=== PATIENT | female | born 1965 | race Caucasian/White ===

== ENCOUNTER → 2017-08-03 | Outpatient (CLI) | payer OTHER ==
--- NOTE | 2017-08-03 11:30 | XR ---
EXAMINATION TYPE: XR lumbosacral spine min 4V DATE OF EXAM: 08/03/2017 COMPARISON: NONE HISTORY: Low back pain, degenerative disc change, osteoarthritis TECHNIQUE: Five-view lumbar spine FINDINGS: There is a minimal grade 1 spondylolisthesis of L4 anterior and L5. Disc space narrowing is present L5-S1. Some posterior disc space narrowing is present L3-4 and L2-3. Vertebral body heights are preserved. There is diffuse facet degenerative changes throughout the lumbar spine, greater at th e L4-5 L5-S1 levels. There is attempted sacralization of L5. IMPRESSION: 1. Degenerative changes discussed above. No acute osseous abnormality is evident.
== END | disposition home or self-care (01) ==
LOC: RADXRMAIN 10:58
PROVIDERS: ATTEND Family Medicine
DX: M47.817 Spondylosis without myelopathy or radiculopathy, lumbosacral region (principal)
CPT/HCPCS: 72110

== ENCOUNTER 2018-10-27 21:19 | Emergency (ER) | payer OTHER ==
[2018-10-27 21:40] VITALS: RESP 18
[2018-10-27] MEDS ORDERED: DIPH,PERTUS(ACELL)TETVAC-LF 0.5 ML VIAL IM ONE (21:40)
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
[2018-10-27 23:10] LABS: Appearance,Urine Clear (Clear); Bacteria,Urine Rare /hpf; Bilirubin,Urine Negative (Negative); Blood,Urine Trace (Negative); Color,Urine Yellow; Glucose,Urine (UA) Negative (Negative); Ketones,Urine Negative (Negative); Leukocyte Esterase,Urine Small (Negative); Mucus,Urine Rare /hpf; Nitrite,Urine Positive (Negative); PH, Urine 5.5 (5.0-8.0); Protein,Urine Trace (Negative); RBC,Urine 2 /hpf (0-5); Specific Gravity,Urine 1.022 (1.001-1.035); Squamous Epithelial Cell,Urine 3 /hpf (0-4); WBC,Urine 5 /hpf (0-5)
[2018-10-28 01:42] LABS: Amphetamine Screen,Urine Not Detected (NotDetected); Barbiturate Screen,Urine Not Detected (NotDetected); Benzodiazepines Screen,Urine Detected (NotDetected); Cocaine Screen,Urine Not Detected (NotDetected); Methadone Screen, Urine Not Detected (NotDetected); Opiate Screen,Urine Not Detected (NotDetected); Oxycodone Screen, Urine Not Detected (NotDetected); Phencyclidine Screen,Urine Not Detected (NotDetected); Tricyclic Antidepressant,Urine Not Detected (NotDetected); Urn Cannabinoid Scrn Not Detected (NotDetected)
[2018-10-28] MEDS ORDERED: clonazePAM 0.5 MG TAB PO PRN (01:52)
[2018-10-28] MEDS ORDERED: DIAZEPAM 5 MG TAB PO PRN (01:52)
[2018-10-28] MEDS ORDERED: lamoTRIgine 100 MG TAB PO STA (02:04)
[2018-10-28 08:57] VITALS: BP 126/68; PULSE 88; TEMP 97.7
[2018-10-28] MEDS ORDERED: LORATADINE 10 MG TAB PO SCH (09:00)
[2018-10-28] MEDS ORDERED: DULoxetine HCL 60 MG CAPSULE.DR PO SCH (09:00)
[2018-10-28] MEDS ORDERED: NON-FORMULARY DRUG (Omeprazole 20 MG) PO SCH (09:00)
[2018-10-28] MEDS ORDERED: ARIPiprazole 5 MG TAB PO SCH (09:00)
[2018-10-28] MEDS ORDERED: lamoTRIgine 100 MG TAB PO SCH (09:00)
[2018-10-28] MEDS ORDERED: NON-FORMULARY DRUG (Ranitidine Hcl [Zantac] 150 MG) PO SCH (21:00)
== END 2018-10-28 09:17 ==
LOC: EC 21:19
DX: S61.512A Laceration without foreign body of left wrist, initial encounter (principal); F32.9 Major depressive disorder, single episode, unspecified; F41.9 Anxiety disorder, unspecified; F43.10 Post-traumatic stress disorder, unspecified; F17.200 Nicotine dependence, unspecified, uncomplicated; Z91.5 Personal history of self-harm; Z85.9 Personal history of malignant neoplasm, unspecified; Z79.899 Other long term (current) drug therapy; Z88.1 Allergy status to other antibiotic agents; Z88.5 Allergy status to narcotic agent; Z91.041 Radiographic dye allergy status; Z91.040 Latex allergy status; Z88.8 Allergy status to other drugs, medicaments and biological substances; Z88.2 Allergy status to sulfonamides; Z23 Encounter for immunization; W26.0XXA Contact with knife, initial encounter; Y93.89 Activity, other specified
CPT/HCPCS: 12002; 80306; 81001; 81025; 82075; 90471; 90715; 99284

== ENCOUNTER → 2018-12-22 | Outpatient (CLI) | payer OTHER ==
--- NOTE | 2018-12-23 11:25 | MM ---
Reason for exam: additional evaluation requested from prior study. Last mammogram was performed 1 year and 4 months ago. History: Patient has history of other cancer at age 26. Family history of breast cancer in sister at age 43 and breast cancer in paternal aunt at age 50. Benign cyst aspiration of the right breast. Physical Findings: Nurse did not find any significant physical abnormalities on exam. [facility] Diagnostic Mammo w CAD SHE[place] Bilateral CC and MLO view(s) were taken. Prior study comparison: August 30, 2017, mammogram. There are scattered fibroglandular densities. No significant new findings when compared with previous films. These results were verbally communicated with the patient and result sheet given to the patient on 12/22/18. ASSESSMENT: Negative, BI-RAD 1 RECOMMENDATION: Routine screening mammogram of both breasts in 1 year. Manage patient on a clinical basis. If any suspicious palpable abnormality develops, patient should be referred for ultrasound.
== END | disposition home or self-care (01) ==
LOC: RADMAMWWP 16:03
PROVIDERS: ATTEND Family Medicine
DX: Z09 Encounter for follow-up examination after completed treatment for conditions other than malignant neoplasm (principal); Z87.898 Personal history of other specified conditions; Z80.3 Family history of malignant neoplasm of breast
CPT/HCPCS: 77066

== ENCOUNTER → 2019-02-13 | Outpatient (CLI) | payer OTHER ==
--- NOTE | 2019-02-13 15:21 | XR ---
EXAMINATION TYPE: XR KUB DATE OF EXAM: 02/13/2019 COMPARISON: NONE HISTORY: Right renal stone TECHNIQUE: One view abdominal series FINDINGS: The osseous structures are intact. The bowel gas pattern is nonspecific. Calcifications in the pelvi s are nonspecific. Hypertrophic change of the acetabulum bilaterally. Sclerotic density right femoral neck likely related to bone island. Hypertrophic and degenerative change lower lumbar spine. No suspicious calcifications overlying the kidneys. There is bowel content which does obscure portion s of the renal outlines.. IMPRESSION: 1. Nonspecific abdomen. No definite suspicious calcifications as visualized.
== END | disposition home or self-care (01) ==
LOC: RAD 14:57
PROVIDERS: ATTEND Urology
DX: N20.0 Calculus of kidney (principal)
CPT/HCPCS: 74018

== ENCOUNTER → 2019-02-20 | Outpatient (CLI) | payer OTHER ==
[2019-02-20 14:14] VITALS: BP 139/70; PULSE 16; RESP 16; TEMP 98.4; BMI 38.1
--- NOTE | 2019-02-20 14:37 | P.HPBAR ---
Bariatric H&P - History & Physicial H&P Date: 02/20/19 History & Physicial: Visit/CC: Initial Visit Patient initial contact: Initial weight: 104.78 kg Initial weight in pounds: 231.00 Height: 5 ft 5.25 in Initial BMI: 38.1 Last weight: Current weight: 104.78 kg Current weight in pounds: 231.00 Current BMI: 38.1 [place] body weight (based on NIH guidelines): 57.266 kg Excess body weight loss: 0.0% The patient is a 53 year-old F who presents for Bariatric Assessment. Patient presents today for presurgical consultation. She is morbidly obese, her BMI is 38. She has had lifetime problems with obesity. She is interested in the sleeve gastrectomy. Past Medical History Past Medical History: Cancer Additional Past Medical History / Comment(s): kidney stones, personality disorder, arrhythmia History of Any Multi-Drug Resistant Organisms: None Reported Past Surgical History: Orthopedic Surgery Additional Past Surgical History / Comment(s): BNSP Smoking Status: Current every day smoker Surgical - Exam Vital Signs Temp Pulse Resp BP 98.4 F 16 L 16 139/70 02/20/19 14:10 02/20/19 14:10 02/20/19 14:10 02/20/19 14:10 - General well developed, well nourished, no distress - Eyes PERRL - ENT normal pinna - Neck no masses - Respiratory normal expansion - Cardiovascular Rhythm: regular - Abdomen Abdomen: soft, non tender Bariatric Assessment & Plan Plan: Morbid obesity with BMI 42. Patient was scheduled for EGD. Once her insurance authorization is complete she will undergo scheduled for sleeve gastrectomy. Bariatric Checklist Checklist: Plan: Checklist: EGD: 1. Hiatal hernia: 2. H. Pylori: HgbA1c: Vitamin D: Smoking: Current every day smoker Primary care physician referral: Dr. Dunlap Psychiatry clearance: Cardiology clearance: Sleep study: Diet journal: VTE risk score: VTE risk level: Rehab needs at discharge:
[2019-02-20 15:07] LABS: HCT 42.4 % (34.0-46.0); HGB 13.8 gm/dL (11.4-16.0); MCH 27.8 pg (25.0-35.0); MCHC 32.6 g/dL (31.0-37.0); MCV 85.1 fL (80.0-100.0); Mean Platelet Volume 7.2; Platelet Count 271 k/uL (150-450); RBC 4.97 m/uL (3.80-5.40); RDW 13.8 % (11.5-15.5); WBC 10.9 k/uL (3.8-10.6)
[2019-02-21 00:17] LABS: Albumin 4.1 g/dL (3.80-4.90); Albumin/Globulin Ratio 1.95 (1.60-3.17); Anion Gap 3.5 mmol/L (4.00-12.00); Calcium 9.1 mg/dL (8.7-10.3); Carbon Dioxide 30.5 mmol/L (21.6-31.8); Globulin 2.1 g/dL (1.6-3.3); LDL Cholesterol,Calculated 120.8 mg/dL (0.0-131.0); Potassium 4.3 mmol/L (3.5-5.5); Total Bilirubin 0.2 mg/dL (0.2-1.2); Total Protein 6.2 g/dL (6.2-8.2); VLDL Calculation 55.2 mg/dL (5.00-40.00)
[2019-02-21 00:18] LABS: Vitamin D 25 Hydroxy 46.4 ng/mL (30.0-100.0)
[2019-02-21 00:48] LABS: Hemoglobin A1C 6.1 % (4.0-6.0)
== END | disposition home or self-care (01) ==
LOC: BARWHC3 13:29
PROVIDERS: ATTEND Surgery
DX: E66.01 Morbid (severe) obesity due to excess calories (principal); E44.0 Moderate protein-calorie malnutrition; E55.9 Vitamin D deficiency, unspecified; F17.200 Nicotine dependence, unspecified, uncomplicated; Z68.38 Body mass index [BMI] 38.0-38.9, adult
CPT/HCPCS: 80061; 80053; 82607; 84443; 85027; 82306; 83036; 93005; 36415; G0463; 99201

== ENCOUNTER → 2019-02-24 | Outpatient (CLI) | payer OTHER ==
--- NOTE | 2019-02-24 11:44 | XR ---
EXAMINATION TYPE: XR skull limited DATE OF EXAM: 02/24/2019 COMPARISON: NONE HISTORY: Pre-MRI clearance. TECHNIQUE: Two-view skull. FINDINGS: No suspicious intracranial metallic foreign body or coil is seen to prevent MRI study. IMPRESSION: As above.
--- NOTE | 2019-02-25 20:03 | MR ---
EXAMINATION TYPE: MR knee LT wo con DATE OF EXAM: 02/24/2019 COMPARISON: None HISTORY: Left knee pain TECHNIQUE: Multiplanar, multisequence imaging of the left knee is performed without IV contrast. FINDINGS: MEDIAL MENISCUS: There is a parallel linear signal within the posterior horn medial meniscus compatib le some internal derangement. Communication with the articular surface is not clearly identified. LATERAL MENISCUS: Anterior and posterior horns are intact without tear. CRUCIATE LIGAMENTS: The anterior and posterior cruciate ligaments are intact and unremarkable. COLLATERAL LIGAMENTS: The medial collateral ligament and lateral collateral ligament complex are inta ct and unremarkable. EXTENSOR MECHANISM: Visualized quadriceps and patellar tendons are intact. EFFUSION: There is a moderate effusion. This may have extension posteriorly to the joint space into the popliteal cyst. POPLITEAL CYST: There is a small popliteal cyst present measuring 1.3 x 2.2 cm. TRICOMPARTMENT SPACES: There is narrowing of the medial compartment joint space. Lateral compartment joint space appears preserved. Patellofemoral joint space is preserved. Note is made of medial femor al condylar spurring. CARTILAGE: There is thinning of the articular cartilage within the medial compartment joint space. BONE MARROW SIGNAL: No focal abnormal marrow signal is appreciated. OTHER: No additional significant abnormality is appreciated. IMPRESSION: Internal derangement posterior horn medial meniscus. 2. Moderate joint effusion. 3. Popliteal cyst. 4. Osteoarthritic degenerative change of the medial compartment left knee thinning of the cartilage
== END | disposition home or self-care (01) ==
LOC: RADMRIMAIN 11:10
PROVIDERS: ATTEND Orthopaedic Surgery
DX: M19.90 Unspecified osteoarthritis, unspecified site (principal); M71.22 Synovial cyst of popliteal space [Baker], left knee
CPT/HCPCS: 70250

== ENCOUNTER 2019-03-03 10:06 | Day surgery (SDC) | payer OTHER ==
[~2019-03-03 10:06] MED LIST: LACTATED RINGERS 1,000 ML IV SCH
[2019-03-03 10:26] VITALS: RESP 16; TEMP 96.9
[2019-03-03] MEDS ORDERED: LIDOCAINE 1% 20 ML VIAL (10MG/ML) FOR IV START INTRADERMA ONE (10:36)
[2019-03-03] MEDS ORDERED: PROPOFOL 10 MG/ML 20 ML VIAL IV ONE (10:37)
[2019-03-03] MEDS ORDERED: MIDAZOLAM 2 MG/2 ML VIAL ONE (10:37)
--- NOTE | 2019-03-03 10:39 | P.GSHP ---
History of Present Illness H&P Date: 03/03/19 Chief Complaint: GERD, morbid obesity This is a 53-year-old female referred from Dr. Brown. Patient's echo with GERD. She is undergoing workup for sleeve gastrectomy. Her BMI is 39. Past Medical History Past Medical History: Asthma, Cancer Additional Past Medical History / Comment(s): kidney stones, arrhythmia, cervical/uterine cancer History of Any Multi-Drug Resistant Organisms: None Reported Past Surgical History: Appendectomy, Bladder Surgery, Ear Surgery, Hysterectomy, Orthopedic Surgery, Tonsillectomy, Tubal Ligation Additional Past Surgical History / Comment(s): bladder neck suspension, mastoid facial decompression, rt ear stapes surgery, rt ankle plate and screws, egd, colonoscopy Past Anesthesia/Blood Transfusion Reactions: Previous Problems w/ Anesthesia Additional Past Anesthesia/Blood Transfusion Reaction / Comment(s): pt states "came out of twilight anesthesia when doing procedure" Smoking Status: Current every day smoker - Past Family History Sister(s) Family Medical History: Cancer Additional Family Medical History / Comment(s): breast cancer Father Family Medical History: Cancer Additional Family Medical History / Comment(s): throat cancer Medications and Allergies Home Medications Medication Instructions Recorded Confirmed Type ARIPiprazole [Abilify] 5 mg PO DAILY 10/27/18 03/03/19 History Cetirizine HCl [Zyrtec] 10 mg PO DAILY 10/27/18 03/03/19 History DULoxetine HCL [Cymbalta] 60 mg PO BID 10/27/18 03/03/19 History Omeprazole [PriLOSEC] 20 mg PO DAILY 10/27/18 03/03/19 History Ranitidine HCl [Zantac] 150 mg PO HS 10/27/18 03/03/19 History clonazePAM [KlonoPIN] 1 mg PO TID PRN 10/27/18 03/03/19 History busPIRone HCl [Buspar] 5 mg PO BID 02/20/19 03/03/19 History Albuterol Inhaler [Ventolin Hfa 1 - 2 puff INHALATION RT-Q6H PRN 03/01/19 03/03/19 History Inhaler] Albuterol Nebulized [Ventolin 2.5 mg INHALATION DAILY PRN 03/01/19 03/03/19 History Nebulized] Folic Acid 2 tab PO DAILY 03/01/19 03/03/19 History Allergies Allergy/AdvReac Type Severity Reaction Status Date / Time azithromycin Allergy Unknown Verified 03/03/19 10:37 cephalexin [From Keflex] Allergy Unknown Verified 03/03/19 10:37 codeine Allergy SOB/GI Verified 03/03/19 10:37 DISTRESS divalproex sodium Allergy "felt like Verified 03/03/19 10:37 [From Depakote] I was going crazy" hydromorphone [From Dilaudid] Allergy BP Verified 03/03/19 10:37 DECREASES Iodinated Contrast- Oral and Allergy Unknown Verified 03/03/19 10:37 IV Dye iodine Allergy Unknown Verified 03/03/19 10:37 Latex, Natural Rubber Allergy Rash/Hives/ Verified 03/03/19 10:37 WHEEZING oxycodone [From OxyContin] Allergy Unknown Verified 03/03/19 10:37 Penicillins Allergy Unknown Verified 03/03/19 10:37 pseudoephedrine Allergy Dyspnea Verified 03/03/19 10:37 Sulfa (Sulfonamide Allergy Unknown Verified 03/03/19 10:37 Antibiotics) clonazepam AdvReac Confusion Verified 03/03/19 10:37 lurasidone AdvReac Nausea & Verified 03/03/19 10:37 Vomiting nitrofurantoin AdvReac Nausea & Verified 03/03/19 10:37 [From Macrobid] Vomiting tetracycline AdvReac Nausea & Verified 03/03/19 10:37 Vomiting valproic acid AdvReac Confusion Verified 03/03/19 10:37 Surgical - Exam Vital Signs Temp Pulse Resp BP Pulse Ox 96.9 F L 93 16 129/61 96 03/03/19 10:24 03/03/19 10:24 03/03/19 10:24 03/03/19 10:24 03/03/19 10:24 - General well developed, well nourished, no distress - Eyes PERRL - ENT normal pinna - Neck no masses - Respiratory normal expansion - Cardiovascular Rhythm: regular - Abdomen Abdomen: soft, non tender Assessment and Plan Assessment: GERD. Morbid obesity We'll perform EGD.
--- NOTE | 2019-03-03 10:48 | P.OP ---
Date of Procedure: 03/03/19 Preoperative Diagnosis: GERD Morbid obesity Postoperative Diagnosis: Gen. gastritis Hiatal hernia Esophagitis Procedure(s) Performed: EGD Anesthesia: MAC Surgeon: Ten Yusuf Pathology: other (Antrum, esophagus) Condition: stable Disposition: PACU Description of Procedure: The patient's placed on the endoscopy table in the lateral position. She received IV sedation. The gastroscope placed oropharynx and passed into the esophagus. The scope was a place and stomach and then through the pylorus. The first second portion of duodenum appeared normal. Scope was then brought back the antrum and this appeared mildly inflamed. A biopsies performed. The scope was then retroflexed and the remainder of the stomach appeared normal. There was a small hiatal hernia. The GE junction was at 39 cm. The distal esophagus appeared mildly inflamed a biopsies performed. The proximal esophagus appeared normal. Scope was withdrawn for patient.
[2019-03-03 11:17] VITALS: BP 100/67; PULSE 87
== END 2019-03-03 11:31 | disposition home or self-care (01) ==
LOC: ORWHC2ENDO 10:06
PROVIDERS: ATTEND Surgery
DX: K21.0 Gastro-esophageal reflux disease with esophagitis (principal); K29.50 Unspecified chronic gastritis without bleeding; K44.9 Diaphragmatic hernia without obstruction or gangrene; E66.01 Morbid (severe) obesity due to excess calories; Z68.39 Body mass index [BMI] 39.0-39.9, adult; J45.909 Unspecified asthma, uncomplicated; F41.9 Anxiety disorder, unspecified; F43.10 Post-traumatic stress disorder, unspecified; F31.9 Bipolar disorder, unspecified; F60.9 Personality disorder, unspecified; F17.210 Nicotine dependence, cigarettes, uncomplicated; Z98.51 Tubal ligation status; Z79.899 Other long term (current) drug therapy; Z91.040 Latex allergy status; Z88.5 Allergy status to narcotic agent; Z88.1 Allergy status to other antibiotic agents; Z91.041 Radiographic dye allergy status; Z88.0 Allergy status to penicillin; Z88.2 Allergy status to sulfonamides; Z88.8 Allergy status to other drugs, medicaments and biological substances; Z91.09 Other allergy status, other than to drugs and biological substances; Z87.442 Personal history of urinary calculi; Z85.41 Personal history of malignant neoplasm of cervix uteri; Z85.42 Personal history of malignant neoplasm of other parts of uterus; Z90.710 Acquired absence of both cervix and uterus; Z80.3 Family history of malignant neoplasm of breast; Z80.0 Family history of malignant neoplasm of digestive organs
CPT/HCPCS: 43239; J2250; J2704; 88305

== ENCOUNTER → 2019-03-06 | Outpatient (CLI) | payer OTHER ==
--- NOTE | 2019-03-06 18:12 | XR ---
EXAMINATION TYPE: XR chest 2V DATE OF EXAM: 03/06/2019 COMPARISON: NONE HISTORY: Preop knee surgery TECHNIQUE: Frontal and lateral views of the chest are obtained. FINDINGS: There is no focal air space opacity, pleural effusion, or pneumothorax seen. The cardiac silhouette size is within normal limits. The osseous structures are intact. IMPRESSION: No acute cardiopulmonary process.
== END | disposition home or self-care (01) ==
LOC: RADXRMAIN 13:09
PROVIDERS: ATTEND Orthopaedic Surgery
DX: Z01.818 Encounter for other preprocedural examination (principal)
CPT/HCPCS: 71046

== ENCOUNTER 2019-03-10 10:20 | Day surgery (SDC) | payer OTHER ==
[2019-03-07 13:11] VITALS: BMI 38.0
--- NOTE | 2019-03-09 09:10 | HP ---
HISTORY AND PHYSICAL CHIEF COMPLAINT: Left knee pain. HISTORY OF PRESENT ILLNESS: The patient is a 53-year-old female who presents with progressive left knee pain for the past several months. It has worsened recently. She has tried previous injections with only partial temporary relief. She notes catching, locking, and giving way. PAST MEDICAL HISTORY: Significant for arthritis, asthma, bipolar disorder. PAST SURGICAL HISTORY: Significant for right ankle surgery, tubal ligation, hysterectomy, mastoid decompression and kidney stone extraction. CURRENT MEDICATIONS: 1. Cymbalta. 2. Klonopin. 3. Lamictal. 4. Prilosec. 5. Seroquel. 6. Trazodone. 7. Zantac. ALLERGIES: She has allergies to ERYTHROMYCIN, DILAUDID, MACROBID, IODINE, LATEX, and DEPAKOTE. FAMILY HISTORY: Significant for cancer, Parkinson's, and diabetes. SOCIAL HISTORY: Significant for 1 pack per day tobacco use. REVIEW OF SYSTEMS: Sixteen point review of systems otherwise reviewed and is noncontributory. PHYSICAL EXAMINATION: On examination, the patient is approximately 5 feet 5 inches, 225 pounds of endomorphic habitus. HEENT exam is nonfocal. Neck is supple. She has painless passive motion of the left hip. Straight leg raise is negative. Active motion left knee -8 to 120 degrees of flexion. She has a large effusion. She is tender about the medial joint line and medial patellar facet. Collaterals are stable. Eric is negative. Cecil's elicits medial pain. Her distal neurovascular exam appears intact in the left lower extremity. MRI report left knee shows increased signal involving the posterior horn of the medial meniscus. There is also irregularity involving the medial femoral condyle chondral surface. IMPRESSION: Left knee internal derangement with symptomatic chondral injury medial femoral condyle. RECOMMENDATIONS: I talked to the patient at length regarding her condition and treatment options. At this point, she is having persistent pain despite adequate conservative measures. After thorough discussion, she opts to proceed with surgery. We will plan to proceed with arthroscopic evaluation with possible medial femoral chondrectomy and possible microfracture. We will likely perform that as an outpatient procedure. Risks and benefits were discussed at length in layman's terms. MMODL / IJN: [id number] /
[~2019-03-10 10:20] MED LIST changes: +DEXAMETHASONE SOD PHOSPHATE 10 MG/ML 1 ML VIAL IV ONE; +KETOROLAC 30 MG/ML 1 ML VIAL IVP SCH; +LIDOCAINE 1% 20 ML VIAL (10MG/ML) FOR IV START INTRADERMA PRN; +ONDANSETRON 4 MG/2 ML VIAL IVP ONE; +ONDANSETRON 4 MG/2 ML VIAL IVP PRN; +Pre Op ABX Message 1 EACH MISC MISCELLANE ONE; +SCOPOLAMINE 1.5MG/72HR PATCH TRANSDERM ONE
[2019-03-10 10:45] VITALS: TEMP 97.5
[2019-03-10] MEDS ORDERED: MIDAZOLAM 2 MG/2 ML VIAL ONE (11:35)
[2019-03-10] MEDS ORDERED: PROPOFOL 10 MG/ML 20 ML VIAL IV ONE (11:35)
[2019-03-10] MEDS ORDERED: fentaNYL (PF) 50 MCG/ML 2 ML AMP ONE (11:35)
[2019-03-10] MEDS ORDERED: LIDOCAINE 1% INJ 10MG/ML (20 ML MDV) ONE (11:35)
[2019-03-10] MEDS ORDERED: EPINEPHrine (PF) 1 ML in SODIUM CHLORIDE 0.9% IRRIGATIO 3,000 ML IRRIGATION ONE ×4 (12:00)
--- NOTE | 2019-03-10 12:29 | P.OP ---
Date of Procedure: 03/10/19 Preoperative Diagnosis: Internal derangement left knee Postoperative Diagnosis: Grade 3 chondral injury distal medial femoral condyle left knee, posterior medial meniscal tear left knee, reactive synovitis Procedure(s) Performed: Left knee arthroscopic medial femoral chondrectomy with microfracture medial femoral condyle, partial medial meniscectomy left knee, partial synovectomy of the medial, lateral and patellofemoral compartments. Anesthesia: GETA Surgeon: Oliverio Clark Estimated Blood Loss (ml): 10 Pathology: none sent Condition: stable Disposition: PACU Indications for Procedure: The patient's a 53-year-old female who presents with progressive left knee pain and mechanical symptoms despite conservative measures. A discussion of the risks and benefits of operative intervention versus continued conservative measures made with patient. She opted to proceed with surgery. Operative risks to include infection, neurovascular injury, development of blood clots, possible incomplete resolution of symptoms, possible worsening symptoms and need for subsequent procedures was discussed. Informed consent was obtained. Operative Findings: As below Description of Procedure: The patient was brought to the operating room, and after induction of general anesthesia examined the left knee. Collaterals were stable, Eric was negative, and posterior drawer was negative. The left lower extremity was prepped and draped in a normal fashion. A superior lateral portal was made through a 3 mm skin incision superior and lateral to the patella. This was used for outflow. A lateral portal was made through a 5 mm vertical skin incision lateral to the patella tendon above the joint line. Diagnostic arthroscopy was performed. On inspection of the medial compartment, a grade 3 chondral injury was noted involving the distal central portion of the medial femoral condyle with a loose chondral fragment. This was debrided back to stable base with a motorized shaver. Microfracture of the medial femoral condyle was performed with a chondral all breeching the subchondral surface down to the bone marrow elements. On inspection of the medial meniscus, a longitudinal tear involving the posterior aspect the medial meniscus in the white-white junction was noted. This was debrided back to stable base with straight baskets. The remaining medial meniscus was stable and intact. Marked synovitis involving the anterior medial and lateral compartments was noted and debrided with a motorized shaver. On inspection of the notch, the anterior cruciate ligament appeared to be intact. On inspection of the lateral compartment, the lateral meniscus was intact. Grade 2-3 chondral changes were noted involving the lateral aspect of the lateral femoral condyle.. On inspection of the patellofemoral articulat ion, grade 2-3 chondral changes were noted diffusely. Reactive synovitis was debrided with a motorized shaver.. The gutters were clear debris. The knee was then thoroughly irrigated. The portals were closed with Steri-Strips. A sterile dressing was applied in addition to a compression stocking. The patient was awoken from general anesthesia and transferred to recovery room in good condition. Blood loss was estimated at 10 mL. No complications were incurred.
[2019-03-10] MEDS: HYDROmorphone 0.5 MG/0.5 ML SYRINGE IVP PRN ×2 (12:40→12:46)
[2019-03-10] MEDS ORDERED: LACTATED RINGERS 1,000 ML IV ONE (13:52)
[2019-03-10] MEDS ORDERED: HYDROcodone/APAP 5-325MG 1 EACH TAB PO ONE (14:19)
[2019-03-10 15:18] VITALS: RESP 16
[2019-03-10 15:19] VITALS: BP 108/75; PULSE 95
== END 2019-03-10 15:44 | disposition home or self-care (01) ==
LOC: OR 10:20
PROVIDERS: ATTEND Orthopaedic Surgery
DX: S83.242A Other tear of medial meniscus, current injury, left knee, initial encounter (principal); M65.9 Synovitis and tenosynovitis, unspecified; F17.210 Nicotine dependence, cigarettes, uncomplicated; S89.91XA Unspecified injury of right lower leg, initial encounter; X58.XXXA Exposure to other specified factors, initial encounter; J45.909 Unspecified asthma, uncomplicated; E78.5 Hyperlipidemia, unspecified; F43.10 Post-traumatic stress disorder, unspecified; F31.9 Bipolar disorder, unspecified; Z79.899 Other long term (current) drug therapy; Z90.710 Acquired absence of both cervix and uterus; Z98.51 Tubal ligation status; Z88.5 Allergy status to narcotic agent; Z88.8 Allergy status to other drugs, medicaments and biological substances; Z88.1 Allergy status to other antibiotic agents; Z91.040 Latex allergy status; Z82.0 Family history of epilepsy and other diseases of the nervous system; Z80.9 Family history of malignant neoplasm, unspecified; Z83.3 Family history of diabetes mellitus; Z88.0 Allergy status to penicillin
CPT/HCPCS: 29881; 29879; 29876; J2250; J1100; J0690; J2405; J0171; J2001; J3010; J2704; J1170

== ENCOUNTER → 2019-07-10 | Outpatient (CLI) | payer MEDICARE, OTHER ==
[2019-07-10 13:55] VITALS: BMI 37.5
== END | disposition home or self-care (01) ==
LOC: BARWHC3 08:40
PROVIDERS: ATTEND Surgery
DX: E66.01 Morbid (severe) obesity due to excess calories (principal)
CPT/HCPCS: 97804

== ENCOUNTER → 2019-07-24 | Outpatient (CLI) | payer MEDICARE, OTHER ==
[2019-07-24 16:15] VITALS: BP 119/76; PULSE 105; TEMP 98.1; BMI 37.1
[2019-07-24 17:31] LABS: Basophils # (A) 0.1 k/uL (0-0.2); Basophils % (A) 1 %; Eosinophils # (A) 0.4 k/uL (0-0.7); Eosinophils % (A) 3 %; HCT 43.2 % (34.0-46.0); HGB 14.4 gm/dL (11.4-16.0); Lymphocytes # (A) 4.2 k/uL (1.0-4.8); Lymphocytes % (A) 33 %; MCH 29.1 pg (25.0-35.0); MCHC 33.2 g/dL (31.0-37.0); MCV 87.5 fL (80.0-100.0); Mean Platelet Volume 8.9; Monocytes # (A) 0.6 k/uL (0-1.0); Monocytes % (A) 5 %; Neutrophils # (A) 7.2 k/uL (1.3-7.7); Neutrophils % (A) 57 %; Platelet Count 286 k/uL (150-450); RBC 4.94 m/uL (3.80-5.40); RDW 13.3 % (11.5-15.5); WBC 12.7 k/uL (3.8-10.6)
--- NOTE | 2019-07-24 17:52 | P.HPBAR ---
Bariatric H&P - History & Physicial H&P Date: 07/24/19 History & Physicial: Visit/CC: presurgical visit Patient initial contact: Initial weight: 104.78 kg Initial weight in pounds: 231.00 Height: 5 ft 5.25 in Initial BMI: 38.1 Last weight: Current weight: 102.058 kg Current weight in pounds: 225.00 Current BMI: 37.1 [place] body weight (based on NIH guidelines): 57.266 kg Excess body weight loss: 5.7% The patient is a 53 year-old F who presents for Bariatric Assessment. Patient presents today for presurgical consultation. She is being scheduled for lap scopic sleeve gastrectomy next week. She has an excellent understanding of the sleeve gastrectomy. She is morbidly obese. Her BMI is 37. Past Medical History Past Medical History: Asthma, Cancer, Osteoarthritis (OA) Additional Past Medical History / Comment(s): kidney stones, arrhythmia, cervical/uterine cancer History of Any Multi-Drug Resistant Organisms: None Reported Past Surgical History: Appendectomy, Bladder Surgery, Ear Surgery, Hysterectomy, Orthopedic Surgery, Tonsillectomy, Tubal Ligation Additional Past Surgical History / Comment(s): bladder neck suspension, mastoid facial decompression, rt ear stapes surgery, rt ankle plate and screws, egd, colonoscopy Past Anesthesia/Blood Transfusion Reactions: Previous Problems w/ Anesthesia Additional Past Anesthesia/Blood Transfusion Reaction / Comm: pt states "came out of twilight anesthesia when doing procedure" Smoking Status: Current every day smoker - Past Family History Sister(s) Family Medical History: Cancer Additional Family Medical History / Comment(s): breast cancer Father Family Medical History: Cancer Additional Family Medical History / Comment(s): throat cancer Surgical - Exam Vital Signs Temp Pulse BP 98.1 F 105 H 119/76 07/24/19 16:14 07/24/19 16:14 07/24/19 16:14 - General well developed, well nourished, no distress - Eyes PERRL - ENT normal pinna - Neck no masses - Respiratory normal expansion - Cardiovascular Rhythm: regular - Abdomen Abdomen: soft, non tender Results - Labs 07/24/19 16:51 Abnormal Lab Results - Last 24 Hours (Table) 07/24/19 Range/Units 16:51 WBC 12.7 H (3.8-10.6) k/uL Bariatric Assessment & Plan Plan: Morbid obesity with severe comorbidities. Patient has an excellent understanding sleeve yesterday. We will out of the risks and benefits of the procedure including gastric staple line bleeding, disruption or scarring. Bariatric Checklist Checklist: Plan: Checklist: EGD: 1. Hiatal hernia: 2. H. Pylori: HgbA1c: Vitamin D: Smoking: Current every day smoker Primary care physician referral: Dr. Dunlap Psychiatry clearance: Cardiology clearance: Sleep study: Diet journal: VTE risk score: VTE risk level: Rehab needs at discharge:
[2019-07-25 00:51] LABS: Albumin 4.5 g/dL (3.80-4.90); Albumin/Globulin Ratio 1.88 (1.60-3.17); Anion Gap 5.8 mmol/L (4.00-12.00); Calcium 9.9 mg/dL (8.7-10.3); Carbon Dioxide 26.2 mmol/L (21.6-31.8); Globulin 2.4 g/dL (1.6-3.3); Non-African American GFR(CKD) 64.7 (60.0-200.0); Total Bilirubin 0.2 mg/dL (0.2-1.2); Total Protein 6.9 g/dL (6.2-8.2)
[2019-07-26 16:33] LABS: Hepatitis A Antibody IgM Non-Reactive (Non-Reactive); Hepatitis B Core IgM Non-Reactive (Non-Reactive); Hepatitis B Surface Antigen Non-Reactive (Non-Reactive); Hepatitis C IgG Antibody Non-Reactive (Non-Reactive)
== END | disposition home or self-care (01) ==
LOC: BARWHC3 15:11
PROVIDERS: ATTEND Surgery
DX: E66.01 Morbid (severe) obesity due to excess calories (principal); F17.200 Nicotine dependence, unspecified, uncomplicated; Z68.37 Body mass index [BMI] 37.0-37.9, adult; Z01.818 Encounter for other preprocedural examination; Z98.51 Tubal ligation status; Z90.710 Acquired absence of both cervix and uterus; Z98.890 Other specified postprocedural states
CPT/HCPCS: 80053; 85025; 36415; G0463; 80074; 99211

== ENCOUNTER 2019-07-28 08:55 | Inpatient (IN) | payer MEDICARE, OTHER ==
[~2019-07-28 08:55] MED LIST changes: +ENOXAPARIN 40 MG/0.4 ML SYRINGE SQ ONE; -KETOROLAC 30 MG/ML 1 ML VIAL IVP SCH; -LACTATED RINGERS 1,000 ML IV SCH; +METOCLOPRAMIDE 5 MG/ML 2 ML VIAL IVP PRN; -Pre Op ABX Message 1 EACH MISC MISCELLANE ONE
--- NOTE | 2019-07-28 09:36 | P.GSHP ---
History of Present Illness H&P Date: 07/28/19 Chief Complaint: Morbid obesity This is a 53-year-old female who presents today for laparoscopic sleeve gastrectomy. Patient has had lifetime problems obesity. Her BMI is 37. Past Medical History Past Medical History: Asthma, Cancer, Fibromyalgia, GERD/Reflux, Osteoarthritis (OA), Pneumonia, Rheumatoid Arthritis (RA), Skin Disorder Additional Past Medical History / Comment(s): kidney stones, arrhythmia, c ervical/uterine cancer, migraines, IBS, eczema, History of Any Multi-Drug Resistant Organisms: None Reported Past Surgical History: Adenoidectomy, Bladder Surgery, Ear Surgery, Hysterectomy, Orthopedic Surgery, Tonsillectomy, Tubal Ligation Additional Past Surgical History / Comment(s): bladder suspension, mastoid facial decompression, rt ear stapes surgery, rt ankle plate and screws, egd, colonoscopy Past Anesthesia/Blood Transfusion Reactions: Previous Problems w/ Anesthesia Additional Past Anesthesia/Blood Transfusion Reaction / Comment(s): pt states "came out of twilight anesthesia when doing procedure" Smoking Status: Current every day smoker - Past Family History Sister(s) Family Medical History: Cancer Additional Family Medical History / Comment(s): breast cancer Father Family Medical History: Cancer Additional Family Medical History / Comment(s): throat cancer Medications and Allergies Home Medications Medication Instructions Recorded Confirmed Type Cetirizine HCl [Zyrtec] 10 mg PO DAILY 10/27/18 07/26/19 History DULoxetine HCL [Cymbalta] 120 mg PO DAILY 10/27/18 07/26/19 History Omeprazole [PriLOSEC] 20 mg PO DAILY 10/27/18 07/26/19 History clonazePAM [KlonoPIN] 1 mg PO TID PRN 10/27/18 07/26/19 History Albuterol Inhaler [Ventolin Hfa 1 - 2 puff INHALATION RT-Q6H PRN 03/01/19 07/26/19 History Inhaler] Albuterol Nebulized [Ventolin 2.5 mg INHALATION DAILY PRN 03/01/19 07/26/19 History Nebulized] Folic Acid 2 mg PO DAILY 03/01/19 07/26/19 History Allergies Allergy/AdvReac Type Severity Reaction Status Date / Time azithromycin Allergy Nausea & Verified 07/26/19 08:23 Vomiting cephalexin [From Keflex] Allergy Nausea & Verified 07/26/19 08:23 Vomiting codeine Allergy SOB/GI Verified 07/26/19 08:23 DISTRESS divalproex sodium Allergy "felt like Verified 07/26/19 08:23 [From Depakote] I was going crazy" hydromorphone [From Dilaudid] Allergy BP Verified 07/26/19 08:23 DECREASES Influenza Virus Vaccines Allergy arm Verified 07/26/19 08:36 swelling and reddness for 4 months Iodinated Contrast Media Allergy Rash/Hives Verified 07/26/19 08:23 [Iodinated Contrast- Oral and IV Dye] iodine Allergy Rash/Hives Verified 07/26/19 08:23 Latex, Natural Rubber Allergy Rash/Hives/ Verified 07/26/19 08:23 WHEEZING oxycodone [From OxyContin] Allergy Itching Verified 07/26/19 08:23 Penicillins Allergy Unknown Verified 07/26/19 08:23 Childhood pseudoephedrine Allergy Dyspnea Verified 07/26/19 08:23 Sulfa (Sulfonamide Allergy Nausea & Verified 07/26/19 08:23 Antibiotics) Vomiting clonazepam AdvReac Confusion Verified 07/26/19 08:23 lurasidone AdvReac Nausea & Verified 07/26/19 08:23 Vomiting nitrofurantoin AdvReac Nausea & Verified 07/26/19 08:23 [From Macrobid] Vomiting tetracycline AdvReac Nausea & Verified 07/26/19 08:23 Vomiting valproic acid AdvReac Confusion Verified 07/26/19 08:23 Surgical - Exam - General well developed, well nourished, no distress - Eyes PERRL - ENT normal pinna - Neck no masses - Respiratory normal expansion, normal respiratory effort - Cardiovascular Rhythm: regular - Abdomen Abdomen: soft, non tender Assessment and Plan Assessment: Morbid obesity.. We'll perform laparoscopic sleeve gastrectomy. Patient is aware of the risks of surgery including gastric sleeve staple line disruption, bleeding and scarring
[2019-07-28 09:39] LABS: Glucose,Whole Blood 131 mg/dL (75-99)
[2019-07-28] MEDS: LACTATED RINGERS 1,000 ML IV SCH (09:45)
[2019-07-28] MEDS ORDERED: BUPIVACAIN-EPI 0.25%-1:200,000 30 ML VIAL SQ ONE (09:57)
[2019-07-28] MEDS ORDERED: MIDAZOLAM 2 MG/2 ML VIAL ONE (09:58)
[2019-07-28] MEDS ORDERED: LIDOCAINE 1% INJ 10MG/ML (20 ML MDV) ONE (09:58)
[2019-07-28] MEDS ORDERED: KETAMINE 10 MG/ML 20 ML VIAL ONE (09:58)
[2019-07-28] MEDS ORDERED: fentaNYL (PF) 50 MCG/ML 2 ML AMP ONE (09:58)
[2019-07-28] MEDS ORDERED: SUCCINYLCHOLINE CHLORIDE 100 MG/5 ML SYR IV ONE (09:58)
[2019-07-28] MEDS ORDERED: .MORPHINE SULFATE (INJ) 10 MG/ML SYRINGE ONE (09:58)
[2019-07-28] MEDS ORDERED: ROCURONIUM BROMIDE 10 MG/ML 10 ML VIAL IV ONE (09:58)
[2019-07-28] MEDS ORDERED: PROPOFOL 10 MG/ML 20 ML VIAL IV ONE (09:58)
[2019-07-28] MEDS ORDERED: GLYCOPYRROLATE 0.2 MG/ML 2 ML VIAL ONE (09:58)
[2019-07-28] MEDS ORDERED: NEOSTIGMINE 1 MG/ML 10 ML VIAL ONE (09:58)
[2019-07-28] MEDS ORDERED: NALOXONE 0.4 MG/ML 1 ML VIAL IV PRN (11:16)
--- NOTE | 2019-07-28 11:16 | P.OP ---
Date of Procedure: 07/28/19 Preoperative Diagnosis: Morbid obesity, BMI 37 Postoperative Diagnosis: Morbid obesity Procedure(s) Performed: Laparoscopic sleeve gastrectomy Anesthesia: MARIANGEL Surgeon: Ten Yusuf Estimated Blood Loss (ml): 5 Pathology: other (Stomach) Condition: stable Disposition: PACU Description of Procedure: The patient was placed on the operating room table in the supine position. She received general anesthesia and then was placed in dorsal lithotomy position. Her abdomen was prepped and draped in sterile fashion. The skin incision sites were anesthetized 1% local Xylocaine. And then the skin was incised with an 11 blade in the left lateral position. Using a blade less trocar under direct visualization the peritoneal cavity was entered. The abdomen was insufflated and then a 5 mm laparoscope was placed into the peritoneal cavity. A 5 mm trocar was placed in the right epigastric, and right lateral position. A 15 mm trocar was placed in the supra-umbilical position and another 5 mm trocar was placed in the left lateral position. The left lateral lobe of the liver was retracted. The stomach was visualized. The greater curvature of the stomach was then dissected using the Harmonic scissors. The dissection occurred approximately 5 cm from the pylorus to the level of the left hailey. There was no hiatal hernia seen. At this point a 40-Bangladeshi bougie dilator was placed the oropharynx and passed into the esophagus and into the stomach by the [employer]. The sleeve gastrectomy was performed by using the powered echelon stapler with a seam guard buttress material. Sequential firings of the stapler were performed. The gastric remnant was then brought out through the 15 mm trocar site. The dilator was withdrawn. And a orogastric tube was replaced into the stomach. The stomach was insufflated with 200 mL of methylene blue normal saline. There was no evidence of extravasation. The abdomen was irrigated there is no bleeding seen. The Abelino-Raghav device was used to close the 15 mm trocar with 0 Vicryl. Skin was closed with interrupted 3-0 Monocryl sutures once the trochars withdrawn. Dermabond dressing was applied. Patient was sent to recovery in stable condition.
[2019-07-28] MEDS: MORPHINE SULFATE 2 MG/ML SYRINGE IV PRN ×4 (11:52→12:44)
[2019-07-28] MEDS: KETOROLAC 30 MG/ML 1 ML VIAL IVP SCH ×4 (11:55→14:34)
[2019-07-28] MEDS: diphenhydrAMINE 50 MG/ML 1 ML VIAL IVP PRN ×3 (12:09→23:57)
[2019-07-28] MEDS ORDERED: LACTATED RINGERS 1,000 ML IV ONE (12:11)
[2019-07-28] MEDS: ALBUTEROL NEBULIZED 2.5 MG/3 ML INHALATION SCH ×3 (14:11→19:43)
[2019-07-28] MEDS: 0.9% NACL WITH KCL 20 MEQ/L 1,000 ML IV SCH ×2 (14:13→17:03)
[2019-07-28] MEDS: HYDROmorphone 1 MG/ML 1 ML SYRINGE IVP PRN ×2 (16:40→20:12)
[2019-07-28] MEDS: HYOSCYAMINE ORAL DROPS 1.875 MG/15 ML BOTTLE PO PRN (20:08)
[2019-07-28] MEDS: ENOXAPARIN 40 MG/0.4 ML SYRINGE SQ SCH (22:47)
[2019-07-28] MEDS: SIMETHICONE 40 MG/0.6 ML DROPS 2,000 MG/30 ML BOTTLE PO PRN (22:47)
[2019-07-29] MEDS: KETOROLAC 30 MG/ML 1 ML VIAL IVP SCH ×4 (00:11→17:14)
[2019-07-29] MEDS: 0.9% NACL WITH KCL 20 MEQ/L 1,000 ML IV SCH (05:12)
[2019-07-29] MEDS: SIMETHICONE 40 MG/0.6 ML DROPS 2,000 MG/30 ML BOTTLE PO PRN ×2 (05:13→11:07)
[2019-07-29] MEDS: HYDROmorphone 1 MG/ML 1 ML SYRINGE IVP PRN ×4 (05:13→16:02)
[2019-07-29] MEDS: HYOSCYAMINE ORAL DROPS 1.875 MG/15 ML BOTTLE PO PRN (05:13)
[2019-07-29] MEDS: LACTATED RINGERS 1,000 ML IV SCH (05:25)
[2019-07-29 06:58] LABS: Basophils % (A) 0 %; Eosinophils % (A) 0 %; HCT 40.7 % (34.0-46.0); HGB 13.3 gm/dL (11.4-16.0); Lymphocytes # (A) 3.5 k/uL (1.0-4.8); Lymphocytes % (A) 21 %; MCH 29.2 pg (25.0-35.0); MCHC 32.7 g/dL (31.0-37.0); MCV 89.3 fL (80.0-100.0); Mean Platelet Volume 8.5; Monocytes # (A) 0.9 k/uL (0-1.0); Monocytes % (A) 6 %; Neutrophils # (A) 11.7 k/uL (1.3-7.7); Neutrophils % (A) 71 %; Platelet Count 267 k/uL (150-450); RBC 4.55 m/uL (3.80-5.40); RDW 13.6 % (11.5-15.5); WBC 16.4 k/uL (3.8-10.6)
[2019-07-29 07:08] LABS: Calcium 8.8 mg/dL (8.4-10.2); Phosphorus 2.8 mg/dL (2.5-4.5); Potassium 4.6 mmol/L (3.5-5.1)
[2019-07-29] MEDS: ALBUTEROL NEBULIZED 2.5 MG/3 ML INHALATION SCH ×4 (07:11→20:00)
--- NOTE | 2019-07-29 08:39 | FL ---
EXAMINATION TYPE: FL UGI DATE OF EXAM ORDERED: 07/29/2019 8:29 AM HISTORY: Gastric sleeve procedure. COMPARISON: None. FINDINGS: The patient drank contrast with ease. There was prompt egress of contrast from the esophag us into the stomach. There is no evidence of extravasation. There is a small amount of free air. Ther e is a slightly unusual appearance to the stomach or first metastatic gastric sleeve. IMPRESSION: STATUS POST GASTRIC SLEEVE WITH A SLIGHTLY UNUSUAL APPEARANCE TO THE STOMACH.
--- NOTE | 2019-07-29 10:19 | P.PN ---
Subjective Progress Note Date: 07/29/19 Principal diagnosis: Morbid obesity Patient complaining of upper abdominal pain. Upper GI this morning shows no evidence of leak or obstruction. White blood cell count slightly elevated at 16.4. No fevers. No tachycardia. She is ambulating in the hallways. Objective - Vital Signs Vital signs: Vital Signs Temp 98.7 F 07/29/19 01:46 Pulse 78 07/29/19 07:31 Resp 16 07/29/19 07:31 BP 97/65 07/29/19 02:14 Pulse Ox 97 07/29/19 07:14 Intake & Output 07/28/19 07/29/19 07/29/19 18:59 06:59 18:59 Intake Total 1175 Output Total 5 400 Balance 1170 -400 Weight 99.9 kg Intake: IV 1175 Output: Urine 400 Estimated Blood Loss 5 Other: Voiding Method Toilet Toilet Bedside Commode Bedside Commode # Voids 1 1 - Exam Abdomen: Soft, mild epigastric tenderness, incisions clean and dry - Labs CBC & Chem 7: 07/29/19 06:25 07/29/19 06:25 Labs: Abnormal Lab Results - Last 24 Hours (Table) 07/29/19 07/29/19 Range/Units 06:25 06:25 WBC 16.4 H (3.8-10.6) k/uL Neutrophils # 11.7 H (1.3-7.7) k/uL Chloride 110 H (98-107) mmol/L Assessment and Plan Plan: Recheck labs tomorrow. Begin bariatric clear liquids. Ambulate.
--- NOTE | 2019-07-29 10:24 | P.CONS ---
History of Present Illness - History of Present Illness this is a pleasant 53 years old female with past medical history of asthma, f ibromyalgia, GERD, osteoarthritis, rheumatoid arthritis, kidney stone, cervical/uterine cancer, migraine, irritable bowel syndrome, eczema. Patient was with morbid obesity and she was admitted for Laparoscopic sleeve gastrectomy.pertinent that she is doing well,however she still have soreness at the epigastric area. Patient remains nothing by mouth this morning. He has normal bowel movement or passing gases. No chest pain or dyspnea. No other complaints. Patient feels hungry and wants to eat but she is in distress due to pain vitals stable, leukocytes slightly elevated at 16.4 K, on 07/24/2019 it was elevated at 12.7, on 02/20/2019 was elevated at 10.9 K.rest of labs are unremarkable. Review of Systems CONSTITUTIONAL: No fever, no malaise, no fatigue. HEENT: No recent visual problems or hearing problems. Denied any sore throat. CARDIOVASCULAR: No orthopnea, PND, no palpitations, no syncope. PULMONARY: No shortness of breath, no cough, no hemoptysis. GASTROINTESTINAL: No diarrhea, no nausea, no vomiting, no abdominal pain. Normoactive bowel sounds. NEUROLOGICAL: No headaches, no weakness, no numbness. HEMATOLOGICAL: Denies any bleeding or petechiae. GENITOURINARY: Denies any burning micturition, frequency, or urgency. MUSCULOSKELETAL/RHEUMATOLOGICAL: Denies any joint pain, swelling, or any muscle pain. ENDOCRINE: Denies any polyuria or polydipsia. Past Medical History Past Medical History: Asthma, Cancer, Fibromyalgia, GERD/Reflux, Osteoarthritis (OA), Pneumonia, Rheumatoid Arthritis (RA), Skin Disorder Additional Past Medical History / Comment(s): kidney stones, arrhythmia, cervical/uterine cancer, migraines, IBS, eczema, History of Any Multi-Drug Resistant Organisms: None Reported Past Surgical History: Adenoidectomy, Bladder Surgery, Ear Surgery, Hysterectomy, Orthopedic Surgery, Tonsillectomy, Tubal Ligation Additional Past Surgical History / Comment(s): bladder suspension, mastoid facial decompression, rt ear stapes surgery, rt ankle plate and screws, egd, colonoscopy Past Anesthesia/Blood Transfusion Reactions: Previous Problems w/ Anesthesia Additional Past Anesthesia/Blood Transfusion Reaction / Comm: pt states "came out of twilight anesthesia when doing procedure" Past Psychological History: Anxiety, Bipolar, Depression, Panic Disorder, PTSD Additional Psychological History / Comment(s): personality disorder Smoking Status: Former smoker Past Alcohol Use History: None Reported Additional Past Alcohol Use History / Comment(s): smoker 30+ years on and off smoked 1 ppd Past Drug Use History: None Reported - Past Family History Sister(s) Family Medical History: Cancer Additional Family Medical History / Comment(s): breast cancer Father Family Medical History: Cancer Additional Family Medical History / Comment(s): throat cancer Medications and Allergies Home Medications Medication Instructions Recorded Confirmed Type Cetirizine HCl [Zyrtec] 10 mg PO DAILY 10/27/18 07/26/19 History DULoxetine HCL [Cymbalta] 120 mg PO DAILY 10/27/18 07/26/19 History clonazePAM [KlonoPIN] 1 mg PO TID PRN 10/27/18 07/26/19 History Albuterol Inhaler [Ventolin Hfa 1 - 2 puff INHALATION RT-Q6H PRN 03/01/19 07/26/19 History Inhaler] Albuterol Nebulized [Ventolin 2.5 mg INHALATION DAILY PRN 03/01/19 07/26/19 History Nebulized] Folic Acid 2 mg PO DAILY 03/01/19 07/26/19 History Bisacodyl [Dulcolax] 5 mg PO DAILY PRN #10 tablet. 07/28/19 Rx Omeprazole 40 mg PO DAILY #30 cap 07/28/19 Rx Ondansetron Odt [Zofran Odt] 4 mg PO Q8HR PRN #9 tab 07/28/19 Rx Simethicone 40 mg/0.6 ml Drops 40 mg PO PCHS PRN #30 ml 07/28/19 Rx [Mylicon Drops] Sucralfate [Carafate] 1 gm PO BID #500 ml 07/28/19 Rx Allergies Allergy/AdvReac Type Severity Reaction Status Date / Time azithromycin Allergy Nausea & Verified 07/26/19 08:23 Vomiting cephalexin [From Keflex] Allergy Nausea & Verified 07/26/19 08:23 Vomiting codeine Allergy SOB/GI Verified 07/26/19 08:23 DISTRESS divalproex sodium Allergy "felt like Verified 07/26/19 08:23 [From Depakote] I was going crazy" hydromorphone [From Dilaudid] Allergy BP Verified 07/26/19 08:23 DECREASES Influenza Virus Vaccines Allergy arm Verified 07/26/19 08:36 swelling and reddness for 4 months Iodinated Contrast Media Allergy Rash/Hives Verified 07/26/19 08:23 [Iodinated Contrast- Oral and IV Dye] iodine Allergy Rash/Hives Verified 07/26/19 08:23 Latex, Natural Rubber Allergy Rash/Hives/ Verified 07/26/19 08:23 WHEEZING oxycodone [From OxyContin] Allergy Itching Verified 07/26/19 08:23 Penicillins Allergy Unknown Verified 07/26/19 08:23 Childhood pseudoephedrine Allergy Dyspnea Verified 07/26/19 08:23 Sulfa (Sulfonamide Allergy Nausea & Verified 07/26/19 08:23 Antibiotics) Vomiting clonazepam AdvReac Confusion Verified 07/26/19 08:23 lurasidone AdvReac Nausea & Verified 07/26/19 08:23 Vomiting nitrofurantoin AdvReac Nausea & Verified 07/26/19 08:23 [From Macrobid] Vomiting tetracycline AdvReac Nausea & Verified 07/26/19 08:23 Vomiting valproic acid AdvReac Confusion Verified 07/26/19 08:23 Physical Exam Vitals: Vital Signs Temp Pulse Pulse Pulse Resp BP BP 07/29/19 07:31 77 78 16 07/29/19 07:21 88 07/29/19 07:14 07/29/19 07:11 80 07/29/19 04:40 16 07/29/19 02:23 07/29/19 02:14 78 97/65 07/29/19 01:46 98.7 F 77 16 85/52 07/29/19 00:00 16 07/28/19 23:10 07/28/19 19:55 76 07/28/19 19:43 84 07/28/19 19:38 98.4 F 75 14 107/69 07/28/19 17:46 108/64 07/28/19 17:23 07/28/19 17:07 90 107/70 07/28/19 16:42 75 07/28/19 16:34 72 07/28/19 15:00 67 104/60 07/28/19 14:35 16 07/28/19 14:30 72 143/89 07/28/19 14:00 72 133/84 07/28/19 13:30 71 134/85 07/28/19 13:15 68 128/78 07/28/19 13:00 97.7 F 64 16 127/79 07/28/19 12:33 69 16 137/70 07/28/19 12:20 64 16 136/74 07/28/19 12:04 75 16 141/76 07/28/19 11:48 67 16 145/72 07/28/19 11:30 76 16 145/71 07/28/19 11:17 97.3 F L 88 17 134/66 Pulse Ox 07/29/19 07:31 07/29/19 07:21 07/29/19 07:14 97 07/29/19 07:11 07/29/19 04:40 07/29/19 02:23 97 07/29/19 02:14 07/29/19 01:46 97 07/29/19 00:00 07/28/19 23:10 98 07/28/19 19:55 07/28/19 19:43 07/28/19 19:38 92 L 07/28/19 17:46 07/28/19 17:23 98 07/28/19 17:07 07/28/19 16:42 07/28/19 16:34 07/28/19 15:00 95 07/28/19 14:35 07/28/19 14:30 91 L 07/28/19 14:00 94 L 07/28/19 13:30 92 L 07/28/19 13:15 94 L 07/28/19 13:00 94 L 07/28/19 12:33 100 07/28/19 12:20 100 07/28/19 12:04 100 07/28/19 11:48 100 07/28/19 11:30 100 07/28/19 11:17 100 Intake and Output 07/28/19 07/29/19 07/29/19 22:59 06:59 14:59 Output Total 400 Balance -400 Output: Urine 400 Other: Voiding Method Toilet Toilet Toilet Bedside Commode Bedside Commode Bedside Commode # Voids 1 1 GENERAL: The patient is alert and oriented x3, not in any acute distress. Well developed, well nourished. HEENT: Pupils are round and equally reacting to light. EOMI. No scleral icterus. No conjunctival pallor. Normocephalic, atraumatic. No pharyngeal erythema. No thyromegaly. CARDIOVASCULAR: S1 and S2 present. No murmurs, rubs, or gallops. PULMONARY: Chest is clear to auscultation, no wheezing or crackles. -ABDOMEN: Soft, epigastric tendernessr, nondistended, normoactive bowel sounds. No palpable organomegaly. 4 laparoscopic small wounds are closed and clean. MUSCULOSKELETAL: No joint swelling or deformity. EXTREMITIES: No cyanosis, clubbing, or pedal edema. NEUROLOGICAL: Gross neurological examination did not reveal any focal deficits. SKIN: No rashes. No petechiae Results CBC & Chem 7: 07/29/19 06:25 07/29/19 06:25 Labs: Abnormal Lab Results - Last 24 Hours (Table) 07/29/19 07/29/19 Range/Units 06:25 06:25 WBC 16.4 H (3.8-10.6) k/uL Neutrophils # 11.7 H (1.3-7.7) k/uL Chloride 110 H (98-107) mmol/L Assessment and Plan Assessment: obesity status post Laparoscopic sleeve gastrectomy Leukocytosis, mostly reactive asthma, not in acute exacerbation Fibromyalgia GERD Osteoarthritis Rheumatoid arthritis Kidney stone history of cervical/uterine Cancer migraine irritable bowel syndrome eczema Plan: this is a pleasant 53 years old female was admitted for Laparoscopic sleeve gastrectomy. She tolerated the procedure well.resume diet as per surgery team. Keep monitoring WBC closely Labs and medication were reviewed.. Continue same treatment. Continue with symptomatic treatment. Resume home medication. Monitor lytes and vitals. DVT and GI prophylaxis. Further recommendations of the clinical course of the patient DVT prophylaxis: Subcutaneous Lovenox GI Prophylaxis:PPI thank you for consulting us
[2019-07-29] MEDS: PANTOPRAZOLE 40 MG/10 ML VIAL IV SCH (10:57)
[2019-07-29] MEDS: ENOXAPARIN 40 MG/0.4 ML SYRINGE SQ SCH ×2 (10:58→21:36)
[2019-07-29] MEDS: 1: MVI, ADULT NO.4 WITH VIT K 10 ML, THIAMINE 100 MG, FOLIC ACID 1 MG, POTASSIUM CHLORID IV SCH ×12 (10:58→17:13)
[2019-07-29] MEDS ORDERED: clonazePAM 1 MG TAB PO PRN ×2 (11:34→23:30)
[2019-07-29] MEDS: ONDANSETRON 4 MG/2 ML VIAL IVP PRN (11:35)
[2019-07-30] MEDS: 1: MVI, ADULT NO.4 WITH VIT K 10 ML, THIAMINE 100 MG, FOLIC ACID 1 MG, POTASSIUM CHLORID IV SCH ×12 (00:27→13:58)
[2019-07-30] MEDS: KETOROLAC 30 MG/ML 1 ML VIAL IVP SCH ×2 (00:27→06:26)
[2019-07-30 07:17] LABS: Basophils % (A) 0 %; Eosinophils # (A) 0.3 k/uL (0-0.7); Eosinophils % (A) 3 %; HCT 37.9 % (34.0-46.0); HGB 12.1 gm/dL (11.4-16.0); Lymphocytes % (A) 31 %; MCHC 32.1 g/dL (31.0-37.0); MCV 90.3 fL (80.0-100.0); Mean Platelet Volume 8.3; Monocytes # (A) 0.4 k/uL (0-1.0); Monocytes % (A) 4 %; Neutrophils # (A) 6.1 k/uL (1.3-7.7); Neutrophils % (A) 61 %; Platelet Count 199 k/uL (150-450); RBC 4.19 m/uL (3.80-5.40); RDW 13.6 % (11.5-15.5); WBC 9.9 k/uL (3.8-10.6)
[2019-07-30 07:28] LABS: Calcium 8.8 mg/dL (8.4-10.2); Magnesium 2.1 mg/dL (1.6-2.3); Potassium 4.5 mmol/L (3.5-5.1)
[2019-07-30] MEDS: ALBUTEROL NEBULIZED 2.5 MG/3 ML INHALATION SCH ×4 (07:29→19:34)
[2019-07-30] MEDS ORDERED: BISACODYL 5 MG TABLET.DR PO PRN (08:00)
[2019-07-30] MEDS: LACTATED RINGERS 1,000 ML IV SCH (09:08)
[2019-07-30] MEDS: ENOXAPARIN 40 MG/0.4 ML SYRINGE SQ SCH ×2 (09:23→20:59)
[2019-07-30] MEDS: PANTOPRAZOLE 40 MG/10 ML VIAL IV SCH (09:27)
--- NOTE | 2019-07-30 10:50 | P.PN ---
Subjective Progress Note Date: 07/30/19 Principal diagnosis: Morbid obesity patient tearful today. Says her pain is a 6 out of 10 compared to yesterday being an 8 out of 10. Her white blood cell count is normal. She is afebrile without tachycardia. Yesterday she was requesting a [employer] milkshake. Today she is stating that she wants to go home. Objective - Vital Signs Vital signs: Vital Signs Temp 98.2 F 07/30/19 07:40 Pulse 79 07/30/19 07:40 Resp 16 07/30/19 07:40 BP 111/67 07/30/19 07:40 Pulse Ox 94 L 07/30/19 07:40 Intake & Output 07/29/19 07/30/19 07/30/19 18:59 06:59 18:59 Intake Total 240 Output Total 800 Balance -800 240 Intake: Oral 240 Output: Urine 800 Other: Voiding Method Toilet Toilet Bedside Commode # Voids 1 1 - Exam abdomen: Soft, nondistended, mild incisional tenderness - Labs CBC & Chem 7: 07/30/19 06:37 07/30/19 06:37 Labs: Abnormal Lab Results - Last 24 Hours (Table) 07/30/19 Range/Units 06:37 Chloride 113 H (98-107) mmol/L Assessment and Plan (1) Morbid obesity Narrative/Plan: continue bariatric clear liquids. Patient not tolerating adequate volumes of liquids thus far. Not comfortable discharging at this point. Continue ambulation. Probable discharge tomorrow. Current Visit: Yes Status: Acute Code(s): E66.01 - MORBID (SEVERE) OBESITY DUE TO EXCESS CALORIES SNOMED Code(s): 295758641
[2019-07-30] MEDS: HYDROcodone/APAP 15 ML SOLUTION PO PRN (12:29)
--- NOTE | 2019-07-30 13:29 | P.PN ---
Subjective this is a pleasant 53 years old female with past medical history of asthma, fibromyalgia, GERD, osteoarthritis, rheumatoid arthritis, kidney stone, cervical/uterine cancer, migraine, irritable bowel syndrome, eczema. Patient was with morbid obesity and she was admitted for Laparoscopic sleeve gastrectomy.pertinent that she is doing well,however she still have soreness at the epigastric area. Patient remains nothing by mouth this morning. He has normal bowel movement or passing gases. No chest pain or dyspnea. No other complaints. Patient feels hungry and wants to eat but she is in distress due to pain vitals stable, leukocytes slightly elevated at 16.4 K, on 07/24/2019 it was elevated at 12.7, on 02/20/2019 was elevated at 10.9 K.rest of labs are unremarkable. 07/30/2019 Patient is more awake and IN bed. Her vitals are stable. She does not need klonopin. Over patient has pain with eating and drinking at her esophageal area. Surgical team for keeping the patient for further monitoring to make sure she is able to tolerate eating and drinking.improved leukocytosis back to normal Objective - Vital Signs Vital signs: Vital Signs Temp 98.2 F 07/30/19 07:40 Pulse 72 07/30/19 11:11 Resp 16 07/30/19 07:40 BP 111/67 07/30/19 07:40 Pulse Ox 94 L 07/30/19 07:40 Intake & Output 07/29/19 07/30/19 07/30/19 18:59 06:59 18:59 Intake Total 240 Output Total 800 Balance -800 240 Intake: Oral 240 Output: Urine 800 Other: Voiding Method Toilet Toilet Toilet Bedside Commode # Voids 1 1 - Exam GENERAL: The patient is alert and oriented x3, not in any acute distress. Well developed, well nourished. HEENT: Pupils are round and equally reacting to light. EOMI. No scleral icterus. No conjunctival pallor. Normocephalic, atraumatic. No pharyngeal erythema. No thyromegaly. CARDIOVASCULAR: S1 and S2 present. No murmurs, rubs, or gallops. PULMONARY: Chest is clear to auscultation, no wheezing or crackles. -ABDOMEN: Soft, epigastric tenderness with no rebound tenderness, nondistended, normoactive bowel sounds. No palpable organomegaly. MUSCULOSKELETAL: No joint swelling or deformity. EXTREMITIES: No cyanosis, clubbing, or pedal edema. NEUROLOGICAL: Gross neurological examination did not reveal any focal deficits. SKIN: No rashes. no petechiae. - Labs CBC & Chem 7: 07/30/19 06:37 07/30/19 06:37 Labs: Abnormal Lab Results - Last 24 Hours (Table) 07/30/19 Range/Units 06:37 Chloride 113 H (98-107) mmol/L Assessment and Plan Assessment: obesity status post Laparoscopic sleeve gastrectomy Leukocytosis, mostly reactive asthma, not in acute exacerbation Fibromyalgia GERD Osteoarthritis Rheumatoid arthritis Kidney stone history of cervical/uterine Cancer migraine irritable bowel syndrome eczema Plan: this is a pleasant 53 years old female was admitted for Laparoscopic sleeve gastrectomy. She tolerated the procedure well.resume diet as per surgery team. Keep monitoring WBC closely Labs and medication were reviewed.. Continue same treatment. Continue with symptomatic treatment. Resume home medication. Monitor lytes and vitals. DVT and GI prophylaxis. Further recommendations of the clinical course of the patient DVT prophylaxis: Subcutaneous Lovenox GI Prophylaxis:PPI thank you for consulting us
[2019-07-30] MEDS: ONDANSETRON 4 MG/2 ML VIAL IVP PRN (19:31)
[2019-07-31] MEDS: 1: MVI, ADULT NO.4 WITH VIT K 10 ML, THIAMINE 100 MG, FOLIC ACID 1 MG, POTASSIUM CHLORID IV SCH ×12 (01:32→08:50)
[2019-07-31] MEDS: ALBUTEROL NEBULIZED 2.5 MG/3 ML INHALATION SCH ×3 (08:03→15:41)
[2019-07-31] MEDS: SIMETHICONE 40 MG/0.6 ML DROPS 2,000 MG/30 ML BOTTLE PO PRN (09:03)
[2019-07-31] MEDS: HYOSCYAMINE ORAL DROPS 1.875 MG/15 ML BOTTLE PO PRN (09:03)
[2019-07-31] MEDS: ENOXAPARIN 40 MG/0.4 ML SYRINGE SQ SCH (09:03)
[2019-07-31] MEDS: PANTOPRAZOLE 40 MG/10 ML VIAL IV SCH (09:03)
[2019-07-31] MEDS: LACTATED RINGERS 1,000 ML IV SCH (09:04)
[2019-07-31 09:19] VITALS: BMI 36.6
[2019-07-31] MEDS: HYDROcodone/APAP 15 ML SOLUTION PO PRN (12:07)
--- NOTE | 2019-07-31 12:12 | P.PN ---
Subjective Progress Note Date: 07/31/19 CHIEF COMPLAINT: Morbid obesity HISTORY OF PRESENT ILLNESS: Patient examined this morning at the bedside. Patient is status post laparoscopic sleeve gastrectomy. Patient reports drinking approximately 40 ounces of fluids yesterday. This morning she has only had a few sips of water at the time of my examination. She states she has discomfort with every sip she takes. However she is complaining about the clear liquids and asking for something else to eat/drink. Patient is passing flatus. Vital signs are stable. She is afebrile. PHYSICAL EXAM: VITAL SIGNS: Reviewed. GENERAL: Well-developed in no acute distress. HEENT: No sclera icterus. Extraocular movements grossly intact. Moist buccal mucosa. Head is atraumatic, normocephalic. ABDOMEN: Soft. Nondistended. Nontender. Incision sites clean dry and intact. NEUROLOGIC: Alert and oriented. Cranial nerves II through XII grossly intact. ASSESSMENT: 1. Morbid obesity, status post laparoscopic sleeve gastrectomy PLAN: -Continue clear liquid diet as tolerated -Pain control -Increase activity as tolerated -Patient will be reevaluated this afternoon. If the patient's oral intake has improved she may be discharged home. Otherwise discharge will be held until patient is able to tolerate adequate amounts of oral fluids. Nurse practitioner note has been reviewed by physician. Signing provider agrees with the documented findings, assessment, and plan of care. Objective - Vital Signs Vital signs: Vital Signs Temp 98.8 F 07/31/19 07:00 Pulse 77 07/31/19 11:53 Resp 16 07/31/19 07:00 BP 115/70 07/31/19 07:00 Pulse Ox 95 07/31/19 08:03 Intake & Output 07/30/19 07/31/19 07/31/19 18:59 06:59 18:59 Intake Total 1000 400 25 Balance 1000 400 25 Weight 99.9 kg Intake: Intake, IV Titration 1000 400 Amount 0.9% NaCl with KCl 20 Meq 1000 /l 1,000 ml @ 100 mls/hr IV .BY DURATION [facility] Rx#: [id number] Mvi, Adult No.4 with Vit 400 K 10 ml Thiamine 100 mg Folic Acid 1 mg Potassium Chloride 20 meq In Sodium Chloride 0.9% 1, 000 ml @ 100 mls/hr IV . BY DURATION [facility] Rx#: [id number] Oral 25 Other: Voiding Method Toilet # Voids 1 - Labs CBC & Chem 7: 07/30/19 06:37 07/30/19 06:37
[2019-07-31 15:00] VITALS: BP 131/75; TEMP 98.2
[2019-07-31 15:42] VITALS: RESP 16
[2019-07-31 15:53] VITALS: PULSE 80
== END 2019-07-31 18:42 | disposition home or self-care (01) | DRG 621 ==
LOC: 2ORMAIN 08:55 → 4SSUR 12:31
PROVIDERS: ADMIT Surgery; ATTEND Surgery
PROC: 0DB64Z3 Excision of Stomach, Percutaneous Endoscopic Approach, Vertical (ICD-10-PCS; principal; 2019-07-28 10:15)
DX: E66.01 Morbid (severe) obesity due to excess calories (principal); Z68.36 Body mass index [BMI] 36.0-36.9, adult; K58.9 Irritable bowel syndrome, unspecified; G43.909 Migraine, unspecified, not intractable, without status migrainosus; L30.9 Dermatitis, unspecified; M79.7 Fibromyalgia; K21.9 Gastro-esophageal reflux disease without esophagitis; J45.909 Unspecified asthma, uncomplicated; M06.9 Rheumatoid arthritis, unspecified; M19.90 Unspecified osteoarthritis, unspecified site; F43.10 Post-traumatic stress disorder, unspecified; F60.9 Personality disorder, unspecified; F31.9 Bipolar disorder, unspecified; F41.0 Panic disorder [episodic paroxysmal anxiety]; D72.829 Elevated white blood cell count, unspecified; N20.0 Calculus of kidney; Z79.899 Other long term (current) drug therapy; Z71.3 Dietary counseling and surveillance; Z87.01 Personal history of pneumonia (recurrent); Z87.442 Personal history of urinary calculi; Z85.42 Personal history of malignant neoplasm of other parts of uterus; Z90.710 Acquired absence of both cervix and uterus; Z98.51 Tubal ligation status; Z87.891 Personal history of nicotine dependence; Z88.5 Allergy status to narcotic agent; Z88.0 Allergy status to penicillin; Z88.2 Allergy status to sulfonamides; Z88.7 Allergy status to serum and vaccine; Z88.1 Allergy status to other antibiotic agents; Z91.041 Radiographic dye allergy status; Z91.040 Latex allergy status; Z80.3 Family history of malignant neoplasm of breast; Z80.2 Family history of malignant neoplasm of other respiratory and intrathoracic organs
CPT/HCPCS: 74240; 80048; 80051; 82310; 82565; 83735; 84100; 84520; 85025; 88307; 94640; 94760; 94762

== ENCOUNTER → 2019-08-04 | Outpatient (CLI) | payer MEDICARE, OTHER ==
[~2019-08-04] MED LIST changes: -DEXAMETHASONE SOD PHOSPHATE 10 MG/ML 1 ML VIAL IV ONE; -ENOXAPARIN 40 MG/0.4 ML SYRINGE SQ ONE; -LIDOCAINE 1% 20 ML VIAL (10MG/ML) FOR IV START INTRADERMA PRN; -METOCLOPRAMIDE 5 MG/ML 2 ML VIAL IVP PRN; -ONDANSETRON 4 MG/2 ML VIAL IVP ONE; -ONDANSETRON 4 MG/2 ML VIAL IVP PRN; -SCOPOLAMINE 1.5MG/72HR PATCH TRANSDERM ONE; +SODIUM CHLORIDE 0.9% 1,000 ML IV ONE
[2019-08-04 11:06] VITALS: PULSE 77; RESP 16
[2019-08-04 12:12] VITALS: BP 136/78; TEMP 97.6; BMI 35.7
== END | disposition home or self-care (01) ==
LOC: BARWHC3 10:07
PROVIDERS: ATTEND Surgery
DX: E86.0 Dehydration (principal)
CPT/HCPCS: 96360; G0463; 99211

== ENCOUNTER → 2019-08-11 | Outpatient (CLI) | payer MEDICARE, OTHER ==
[2019-08-11 12:13] VITALS: BP 105/83; PULSE 74; TEMP 98.2; BMI 34.9
== END | disposition home or self-care (01) ==
LOC: BARWHC3 10:04
PROVIDERS: ATTEND Surgery
DX: E66.01 Morbid (severe) obesity due to excess calories (principal); Z98.84 Bariatric surgery status; Z68.34 Body mass index [BMI] 34.0-34.9, adult
CPT/HCPCS: 99211

== ENCOUNTER → 2019-08-21 | Outpatient (CLI) | payer MEDICARE, OTHER ==
[2019-08-21 15:21] VITALS: BP 104/69; PULSE 96; TEMP 97.4; BMI 39.5
--- NOTE | 2019-08-21 15:28 | P.HPBAR ---
Bariatric H&P - History & Physicial H&P Date: 08/21/19 History & Physicial: Visit/CC: 2 week sleeve Patient initial contact: Initial weight: 104.78 kg Initial weight in pounds: 231.00 Height: 5 ft 3.5 in Initial BMI: 40.2 Last weight: Current weight: 102.965 kg Current weight in pounds: 227.00 Current BMI: 39.5 [place] body weight (based on NIH guidelines): 53.297 kg Excess body weight loss: 3.5% The patient is a 53 year-old F who presents for Bariatric Assessment. Patient presents today for sleeve gastrectomy follow-up. She has lost 3 pounds her last visit. She has minimal complaints of GERD. She is tolerating diet. Past Medical History Past Medical History: Asthma, Cancer, Osteoarthritis (OA) Additional Past Medical History / Comment(s): kidney stones, arrhythmia, cervical/uterine cancer History of Any Multi-Drug Resistant Organisms: None Reported Past Surgical History: Appendectomy, Bariatric Surgery, Bladder Surgery, Ear Surgery, Hysterectomy, Orthopedic Surgery, Tonsillectomy, Tubal Ligation Additional Past Surgical History / Comment(s): bladder neck suspension, mastoid facial decompression, rt ear stapes surgery, rt ankle plate and screws, egd, colonoscopy, sleeve gastrectomy 07-28-19 Past Anesthesia/Blood Transfusion Reactions: Previous Problems w/ Anesthesia Additional Past Anesthesia/Blood Transfusion Reaction / Comm: pt states "came out of twilight anesthesia when doing procedure" Past Psychological History: Anxiety, Bipolar, Depression, Panic Disorder, PTSD Additional Psychological History / Comment(s): personality disorder Smoking Status: Former smoker Past Alcohol Use History: Rare Additional Past Alcohol Use History / Comment(s): smoker 30+ years on and off smoked 1 ppd Past Drug Use History: None Reported - Past Family History Sister(s) Family Medical History: Cancer Additional Family Medical History / Comment(s): breast cancer Father Family Medical History: Cancer Additional Family Medical History / Comment(s): throat cancer Surgical - Exam Vital Signs Temp Pulse BP 97.4 F L 96 104/69 08/21/19 15:02 08/21/19 15:02 08/21/19 15:02 - General well developed, well nourished, no distress - Eyes PERRL - ENT normal pinna - Neck no masses - Respiratory normal expansion - Cardiovascular Rhythm: regular - Abdomen Abdomen: soft, non tender Bariatric Assessment & Plan Plan: Status post sleeve gastrectomy. Patient is doing quite well. There is minimal on be observed. She'll follow-up in 2 weeks. Bariatric Checklist Checklist: Plan: Checklist: EGD: 1. Hiatal hernia: 2. H. Pylori: HgbA1c: Vitamin D: Smoking: Former smoker Primary care physician referral: Dr. Berry Psychiatry clearance: Cardiology clearance: Sleep study: Diet journal: VTE risk score: VTE risk level: Rehab needs at discharge:
== END | disposition home or self-care (01) ==
LOC: BARWHC3 14:45
PROVIDERS: ATTEND Surgery
DX: Z48.815 Encounter for surgical aftercare following surgery on the digestive system (principal); Z98.84 Bariatric surgery status; Z90.49 Acquired absence of other specified parts of digestive tract; Z98.890 Other specified postprocedural states; Z87.891 Personal history of nicotine dependence
CPT/HCPCS: 97803; G0463; 99211

== ENCOUNTER → 2019-09-04 | Outpatient (CLI) | payer MEDICARE, OTHER ==
[2019-09-04 16:31] LABS: MCH 29.5 pg (25.0-35.0); MCHC 33.4 g/dL (31.0-37.0); MCV 88.2 fL (80.0-100.0); Mean Platelet Volume 8.6; Platelet Count 228 k/uL (150-450); RBC 4.76 m/uL (3.80-5.40); RDW 13.3 % (11.5-15.5); WBC 11.6 k/uL (3.8-10.6)
[2019-09-05 01:56] LABS: ALT 81 U/L (8-44); AST 44 U/L (13-35); African American GFR (CKD) 98.2 (60.0-200.0); Alkaline Phosphatase 75 U/L (41-126); Calcium 9.7 mg/dL (8.7-10.3); Carbon Dioxide 27.8 mmol/L (21.6-31.8); Chloride 107 mmol/L (96-109); Globulin 2.1 g/dL (1.6-3.3); Glucose 93 mg/dL (70-110); Non-African American GFR(CKD) 84.8 (60.0-200.0); Potassium 4.1 mmol/L (3.5-5.5); Sodium 141 mmol/L (135-145); Total Bilirubin 0.5 mg/dL (0.3-1.2); Total Protein 6.3 g/dL (6.2-8.2)
[2019-09-05 02:06] LABS: Folate, Serum >24.0 ng/mL
[2019-09-25 15:00] VITALS: BP 111/75; PULSE 110; TEMP 98.9; BMI 33.2
--- NOTE | 2019-10-09 14:19 | P.HPBAR ---
Bariatric H&P - History & Physicial H&P Date: 09/04/19 History & Physicial: Visit/CC: 2 mos sleeve f/u (seeing RD this day as well) Patient initial contact: Initial weight: 104.78 kg Initial weight in pounds: 231.00 Height: 5 ft 5.25 in Initial BMI: 38.1 Last weight: Current weight: 92.533 kg Current weight in pounds: 201.00 Current BMI: 33.2 [place] body weight (based on NIH guidelines): 57.266 kg Excess body weight loss: 28.6% The patient is a 53 year-old F who presents for Bariatric Assessment. Patient's approximately 2 months status post sleeve gastrectomy. She has had a diminished weight loss over the last 1 month. She's had some minimal GERD. Past Medical History Past Medical History: Asthma, Cancer, Osteoarthritis (OA) Additional Past Medical History / Comment(s): kidney stones, arrhythmia, cervical/uterine cancer History of Any Multi-Drug Resistant Organisms: None Reported Past Surgical History: Appendectomy, Bariatric Surgery, Bladder Surgery, Ear Surgery, Hysterectomy, Orthopedic Surgery, Tonsillectomy, Tubal Ligation Additional Past Surgical History / Comment(s): bladder neck suspension, mastoid facial decompression, rt ear stapes surgery, rt ankle plate and screws, egd, colonoscopy, sleeve gastrectomy 07-28-19 Past Anesthesia/Blood Transfusion Reactions: Previous Problems w/ Anesthesia Additional Past Anesthesia/Blood Transfusion Reaction / Comm: pt states "came out of twilight anesthesia when doing procedure" Past Psychological History: Anxiety, Bipolar, Depression, Panic Disorder, PTSD Additional Psychological History / Comment(s): personality disorder Smoking Status: Former smoker Past Alcohol Use History: Rare Additional Past Alcohol Use History / Comment(s): smoker 30+ years on and off smoked 1 ppd Past Drug Use History: None Reported - Past Family History Sister(s) Family Medical History: Cancer Additional Family Medical History / Comment(s): breast cancer Father Family Medical History: Cancer Additional Family Medical History / Comment(s): throat cancer Surgical - Exam Vital Signs Temp Pulse BP 98.2 F 95 110/62 09/04/19 15:05 09/04/19 15:05 09/04/19 15:05 - General well developed, well nourished, no distress - Eyes PERRL - ENT normal pinna - Neck no masses - Respiratory normal expansion - Cardiovascular Rhythm: regular - Abdomen Abdomen: soft, non tender Results - Labs 09/04/19 16:06 09/04/19 16:06 Bariatric Assessment & Plan Plan: Status post sleeve yesterday. Patient is minimal will be observed. She will focus on increased dietary restrictions. Bariatric Checklist Checklist: Plan: Checklist: EGD: 1. Hiatal hernia: 2. H. Pylori: HgbA1c: Vitamin D: Smoking: Former smoker Primary care physician referral: Dr. Berry Psychiatry clearance: Cardiology clearance: Sleep study: Diet journal: VTE risk score: VTE risk level: Rehab needs at discharge:
== END | disposition home or self-care (01) ==
LOC: BARWHC3 14:52
PROVIDERS: ATTEND Surgery
DX: E66.01 Morbid (severe) obesity due to excess calories (principal); Z68.33 Body mass index [BMI] 33.0-33.9, adult; E44.0 Moderate protein-calorie malnutrition; Z48.815 Encounter for surgical aftercare following surgery on the digestive system; Z87.891 Personal history of nicotine dependence; Z98.84 Bariatric surgery status; Z90.710 Acquired absence of both cervix and uterus; Z98.51 Tubal ligation status; Z98.890 Other specified postprocedural states
CPT/HCPCS: 84425; 80053; 82607; 82746; 84443; 85027; 82306; 97803; 36415; G0463; 99211

== ENCOUNTER → 2019-09-25 | Outpatient (CLI) | payer MEDICARE, OTHER ==
[2019-09-25 15:07] VITALS: BP 111/75; PULSE 110; TEMP 98.9; BMI 33.2
--- NOTE | 2019-10-02 14:01 | P.HPBAR ---
Bariatric H&P - History & Physicial H&P Date: 09/25/19 History & Physicial: Visit/CC: 2mos sleeve f/u Patient initial contact: Initial weight: 104.78 kg Initial weight in pounds: 231.00 Height: 5 ft 5.25 in Initial BMI: 38.1 Last weight: Current weight: 91.172 kg Current weight in pounds: 201.00 Current BMI: 33.2 [place] body weight (based on NIH guidelines): 57.266 kg Excess body weight loss: 28.6% The patient is a 53 year-old F who presents for Bariatric Assessment. Patient presents today for sleeve gastrectomy follow-up. She has some mild complaints of GERD. She has lost 3 pounds her last visit Past Medical History Past Medical History: Asthma, Cancer, Osteoarthritis (OA) Additional Past Medical History / Comment(s): kidney stones, arrhythmia, cervical/uterine cancer History of Any Multi-Drug Resistant Organisms: None Reported Past Surgical History: Appendectomy, Bariatric Surgery, Bladder Surgery, Ear Surgery, Hysterectomy, Orthopedic Surgery, Tonsillectomy, Tubal Ligation Additional Past Surgical History / Comment(s): bladder neck suspension, mastoid facial decompression, rt ear stapes surgery, rt ankle plate and screws, egd, colonoscopy, sleeve gastrectomy 07-28-19 Past Anesthesia/Blood Transfusion Reactions: Previous Problems w/ Anesthesia Additional Past Anesthesia/Blood Transfusion Reaction / Comm: pt states "came out of twilight anesthesia when doing procedure" Past Psychological History: Anxiety, Bipolar, Depression, Panic Disorder, PTSD Additional Psychological History / Comment(s): personality disorder Smoking Status: Former smoker Past Alcohol Use History: Rare Additional Past Alcohol Use History / Comment(s): smoker 30+ years on and off smoked 1 ppd Past Drug Use History: None Reported - Past Family History Sister(s) Family Medical History: Cancer Additional Family Medical History / Comment(s): breast cancer Father Family Medical History: Cancer Additional Family Medical History / Comment(s): throat cancer Surgical - Exam Vital Signs Temp Pulse BP 98.9 F 110 H 111/75 09/25/19 15:05 09/25/19 15:05 09/25/19 15:05 - General well developed, well nourished, no distress - Eyes PERRL - ENT normal pinna - Neck no masses - Respiratory normal expansion - Cardiovascular Rhythm: regular - Abdomen Abdomen: soft, non tender Bariatric Assessment & Plan Plan: Status post sleeve gastrectomy. Patient's girth is minimal and will be observed. Bariatric Checklist Checklist: Plan: Checklist: EGD: 1. Hiatal hernia: 2. H. Pylori: HgbA1c: Vitamin D: Smoking: Former smoker Primary care physician referral: Dr. Berry Psychiatry clearance: Cardiology clearance: Sleep study: Diet journal: VTE risk score: VTE risk level: Rehab needs at discharge:
== END | disposition home or self-care (01) ==
LOC: BARWHC3 14:39
PROVIDERS: ATTEND Surgery
DX: Z48.815 Encounter for surgical aftercare following surgery on the digestive system (principal); E66.01 Morbid (severe) obesity due to excess calories; Z68.33 Body mass index [BMI] 33.0-33.9, adult; Z87.891 Personal history of nicotine dependence; K21.9 Gastro-esophageal reflux disease without esophagitis; Z98.890 Other specified postprocedural states; Z98.84 Bariatric surgery status; Z98.51 Tubal ligation status; Z90.710 Acquired absence of both cervix and uterus
CPT/HCPCS: 99211

== ENCOUNTER → 2019-10-23 | Outpatient (CLI) | payer MEDICARE, OTHER ==
[2019-10-23 16:04] VITALS: BP 113/78; PULSE 105; RESP 16; TEMP 97.9; BMI 32.0
--- NOTE | 2019-10-24 12:29 | P.HPBAR ---
Bariatric H&P - History & Physicial H&P Date: 10/23/19 History & Physicial: Visit/CC: sleeve f/u Patient initial contact: Initial weight: 104.78 kg Initial weight in pounds: 231.00 Height: 5 ft 5.25 in Initial BMI: 38.1 Last weight: Current weight: 87.997 kg Current weight in pounds: 194.00 Current BMI: 32.0 [place] body weight (based on NIH guidelines): 57.266 kg Excess body weight loss: 35.3% The patient is a 53 year-old F who presents for Bariatric Assessment. Patient presents today for sleeve gastric a fall. She's had some minimal GERD. She's had excellent weight loss. She's had some minimal with dysphagia she states that her dysphagia may be related to her eating too quickly. Past Medical History Past Medical History: Asthma, Cancer, Osteoarthritis (OA) Additional Past Medical History / Comment(s): kidney stones, arrhythmia, cervical/uterine cancer History of Any Multi-Drug Resistant Organisms: None Reported Past Surgical History: Appendectomy, Bariatric Surgery, Bladder Surgery, Ear Surgery, Hysterectomy, Orthopedic Surgery, Tonsillectomy, Tubal Ligation Additional Past Surgical History / Comment(s): bladder neck suspension, mastoid facial decompression, rt ear stapes surgery, rt ankle plate and screws, egd, colonoscopy, sleeve gastrectomy 07-28-19 Past Anesthesia/Blood Transfusion Reactions: Previous Problems w/ Anesthesia Additional Past Anesthesia/Blood Transfusion Reaction / Comm: pt states "came out of twilight anesthesia when doing procedure" Past Psychological History: Anxiety, Bipolar, Depression, Panic Disorder, PTSD Additional Psychological History / Comment(s): personality disorder Smoking Status: Former smoker Past Alcohol Use History: Rare Additional Past Alcohol Use History / Comment(s): smoker 30+ years on and off smoked 1 ppd Past Drug Use History: None Reported - Past Family History Sister(s) Family Medical History: Cancer Additional Family Medical History / Comment(s): breast cancer Father Family Medical History: Cancer Additional Family Medical History / Comment(s): throat cancer Surgical - Exam Vital Signs Temp Pulse Resp BP 97.9 F 105 H 16 113/78 10/23/19 16:02 10/23/19 16:02 10/23/19 16:02 10/23/19 16:02 - General well developed, well nourished, no distress - Eyes PERRL - Abdomen Abdomen: soft, non tender Bariatric Assessment & Plan Plan: Patient is doing well. Her GERD is minimal. She will undergo fluid hydration tomorrow. If she has persistent. Dysphagia she'll have an EGD performed at the next visit. Bariatric Checklist Checklist: Plan: Checklist: EGD: 1. Hiatal hernia: 2. H. Pylori: HgbA1c: Vitamin D: Smoking: Former smoker Primary care physician referral: Dr. Berry Psychiatry clearance: Cardiology clearance: Sleep study: Diet journal: VTE risk score: VTE risk level: Rehab needs at discharge:
== END | disposition home or self-care (01) ==
LOC: BARWHC3 15:11
PROVIDERS: ATTEND Surgery
DX: Z48.815 Encounter for surgical aftercare following surgery on the digestive system (principal); K21.9 Gastro-esophageal reflux disease without esophagitis; Z98.84 Bariatric surgery status; Z90.49 Acquired absence of other specified parts of digestive tract; Z87.891 Personal history of nicotine dependence; Z98.890 Other specified postprocedural states
CPT/HCPCS: 97803; G0463; 99211

== ENCOUNTER → 2019-10-24 | Outpatient (CLI) | payer MEDICARE, OTHER ==
[2019-10-24 12:33] VITALS: BP 109/74; PULSE 102; RESP 16; TEMP 98.2
[2019-10-24] MEDS: SODIUM CHLORIDE 0.9% 1,000 ML IV SCH ×2 (12:50→13:44)
[2019-10-24 13:03] LABS: Basophils # (A) 0.1 k/uL (0-0.2); Basophils % (A) 1 %; Eosinophils # (A) 0.4 k/uL (0-0.7); Eosinophils % (A) 4 %; HCT 47.2 % (34.0-46.0); HGB 15.5 gm/dL (11.4-16.0); Lymphocytes # (A) 3.6 k/uL (1.0-4.8); Lymphocytes % (A) 35 %; MCH 28.7 pg (25.0-35.0); MCHC 32.9 g/dL (31.0-37.0); MCV 87.3 fL (80.0-100.0); Mean Platelet Volume 8.9; Monocytes # (A) 0.5 k/uL (0-1.0); Monocytes % (A) 5 %; Neutrophils # (A) 5.8 k/uL (1.3-7.7); Neutrophils % (A) 55 %; Platelet Count 286 k/uL (150-450); RBC 5.41 m/uL (3.80-5.40); RDW 13.4 % (11.5-15.5); WBC 10.5 k/uL (3.8-10.6)
[2019-10-24 13:13] LABS: ALT 52 U/L (4-34); AST 39 U/L (14-36); African American GFR (CKD) >90 (>60 ml/min/1.73 sqM); Albumin 4.4 g/dL (3.5-5.0); Alkaline Phosphatase 69 U/L (38-126); Anion Gap 8 mmol/L; Blood Urea Nitrogen 11 mg/dL (7-17); Calcium 9.9 mg/dL (8.4-10.2); Carbon Dioxide 29 mmol/L (22-30); Chloride 104 mmol/L (98-107); Glucose 106 mg/dL (74-99); Non-African American GFR(CKD) 87 (>60 ml/min/1.73 sqM); Potassium 3.7 mmol/L (3.5-5.1); Sodium 141 mmol/L (137-145); Total Bilirubin 0.4 mg/dL (0.2-1.3); Total Protein 7.5 g/dL (6.3-8.2)
== END | disposition home or self-care (01) ==
LOC: PROCWHC3 12:03
PROVIDERS: ATTEND Surgery
DX: E86.0 Dehydration (principal)
CPT/HCPCS: 80053; 85025; 96360; 96361

== ENCOUNTER → 2020-02-05 | Outpatient (CLI) | payer MEDICARE, OTHER ==
[2020-02-05 13:21] VITALS: BP 110/61; PULSE 93; RESP 16; TEMP 98.4; BMI 29.2
[2020-02-05 14:37] LABS: HCT 41.8 % (34.0-46.0); HGB 13.9 gm/dL (11.4-16.0); MCH 29.4 pg (25.0-35.0); MCHC 33.4 g/dL (31.0-37.0); MCV 88.1 fL (80.0-100.0); Mean Platelet Volume 8.6; Platelet Count 258 k/uL (150-450); RBC 4.74 m/uL (3.80-5.40); RDW 13.7 % (11.5-15.5); WBC 11.1 k/uL (3.8-10.6)
[2020-02-06 02:27] LABS: ALT 47 U/L (8-44); AST 40 U/L (13-35); African American GFR (CKD) 97.6 (60.0-200.0); Albumin/Globulin Ratio 1.91 (1.60-3.17); Alkaline Phosphatase 74 U/L (41-126); BUN/Creat Ratio 18.75 Ratio (12.00-20.00); Calcium 9.3 mg/dL (8.7-10.3); Carbon Dioxide 24.1 mmol/L (21.6-31.8); Chloride 105 mmol/L (96-109); Globulin 2.3 g/dL (1.6-3.3); Glucose 103 mg/dL (70-110); Non-African American GFR(CKD) 84.2 (60.0-200.0); Sodium 139 mmol/L (135-145); Total Bilirubin 0.4 mg/dL (0.2-1.2); Total Protein 6.7 g/dL (6.2-8.2)
[2020-02-06 02:43] LABS: Folate, Serum >24.0 ng/mL
--- NOTE | 2020-02-15 12:43 | P.HPBAR ---
Bariatric H&P - History & Physicial H&P Date: 02/05/20 History & Physicial: Visit/CC: sleeve f/u Patient initial contact: Initial weight: 104.78 kg Initial weight in pounds: 231.00 Height: 5 ft 5.25 in Initial BMI: 38.1 Last weight: Current weight: 80.286 kg Current weight in pounds: 177.00 Current BMI: 29.2 [place] body weight (based on NIH guidelines): 57.266 kg Excess body weight loss: 51.5% The patient is a 54 year-old F who presents for Bariatric Assessment.patient presents for sleeve gastrectomy follow-up. She's had some mild GERD. She's also complains of some epigastric pain. Past Medical History Past Medical History: Asthma, Cancer, Osteoarthritis (OA) Additional Past Medical History / Comment(s): kidney stones, arrhythmia, cervical/uterine cancer History of Any Multi-Drug Resistant Organisms: None Reported Past Surgical History: Appendectomy, Bariatric Surgery, Bladder Surgery, Ear Surgery, Hysterectomy, Orthopedic Surgery, Tonsillectomy, Tubal Ligation Additional Past Surgical History / Comment(s): bladder neck suspension, mastoid facial decompression, rt ear stapes surgery, rt ankle plate and screws, egd, colonoscopy, sleeve gastrectomy 07-28-19 Past Anesthesia/Blood Transfusion Reactions: Previous Problems w/ Anesthesia Additional Past Anesthesia/Blood Transfusion Reaction / Comm: pt states "came out of twilight anesthesia when doing procedure" Past Psychological History: Anxiety, Bipolar, Depression, Panic Disorder, PTSD Additional Psychological History / Comment(s): personality disorder Smoking Status: Current every day smoker Past Alcohol Use History: Rare Additional Past Alcohol Use History / Comment(s): smoker 30+ years on and off smoked 1 ppd Past Drug Use History: None Reported - Past Family History Sister(s) Family Medical History: Cancer Additional Family Medical History / Comment(s): breast cancer Father Family Medical History: Cancer Additional Family Medical History / Comment(s): throat cancer Surgical - Exam Vital Signs Temp Pulse Resp BP 98.4 F 93 16 110/61 02/05/20 13:19 02/05/20 13:19 02/05/20 13:19 02/05/20 13:19 - General well developed, well nourished, no distress - Eyes PERRL - ENT normal pinna - Abdomen abdomen soft. There is some upper quadrant pain. Results - Labs 02/05/20 14:00 02/05/20 14:00 Bariatric Assessment & Plan Plan: status post sleeve gastrectomy. Patient had excellent weight loss. Her GERD is minimal and will be observed. We will order an ultrasound the gallbladder and HIDA scan tonight for possible cholecystitis or biliary dysfunction. Bariatric Checklist Checklist: Plan: Checklist: EGD: 1. Hiatal hernia: 2. H. Pylori: HgbA1c: Vitamin D: Smoking: Current every day smoker Primary care physician referral: VICTORIANO PHELAN Psychiatry clearance: Cardiology clearance: Sleep study: Diet journal: VTE risk score: VTE risk level: Rehab needs at discharge:
== END | disposition home or self-care (01) ==
LOC: BARWHC3 12:13
PROVIDERS: ATTEND Surgery
DX: Z48.815 Encounter for surgical aftercare following surgery on the digestive system (principal); Z98.84 Bariatric surgery status; R10.9 Unspecified abdominal pain; E66.01 Morbid (severe) obesity due to excess calories
CPT/HCPCS: 84425; 80053; 82607; 82746; 84443; 85027; 82306; 97803; G0463; 99211

== ENCOUNTER → 2020-02-13 | Outpatient (CLI) | payer MEDICARE, OTHER ==
--- NOTE | 2020-02-13 08:22 | US ---
EXAMINATION TYPE: US gallbladder DATE OF EXAM: 02/13/2020 COMPARISON: NONE CLINICAL HISTORY: R10.84 Generalized Abdominal pain. RUQ pain EXAM MEASUREMENTS: Liver Length: 14.2 cm Gallbladder Wall: 0.2 cm CBD: 0.6 cm Right Kidney: 9.5 x 4.2 x 4.5 cm Pancreas: visualized portions wnl, limited by overlying midline bowel gas Liver: mildly heterogeneous Gallbladder: 1.3cm echogenic shadowing stone, wall measures wnl Evidence for sonographic Landaverde's sign: yes CBD: wnl Right Kidney: wnl IMPRESSION: 1. Cholelithiasis. 2. Mild fatty hepatic infiltration suggested.
== END | disposition home or self-care (01) ==
LOC: RADUSWWP 07:10
PROVIDERS: ATTEND Surgery
DX: K80.20 Calculus of gallbladder without cholecystitis without obstruction (principal)
CPT/HCPCS: 76705

== ENCOUNTER → 2020-02-21 | Outpatient (CLI) | payer MEDICARE, OTHER ==
--- NOTE | 2020-02-22 07:36 | NM ---
EXAMINATION TYPE: NM hepatobiliary w CCK DATE OF EXAM: 02/21/2020 COMPARISON: NONE HISTORY: The TECHNIQUE: After the intravenous administration of 5.3 mCi Tc 99m Mebrofenin hepatobiliary scintigrap hy is performed. Immediate images post injection. FINDINGS: There is satisfactory initial accumulation of tracer by the liver. The gallbladder is visualized wit hin 40 minutes. The small bowel activity is noted within 14 minutes. At one hour CCK was administer ed, patient was injected with 1.6 mcg of Kinevac, and gallbladder ejection fraction is calculated at 6%. IMPRESSION: Image gallbladder ejection fraction which may reflect chronic cholecystitis and/or biliar y dyskinesia.
== END | disposition home or self-care (01) ==
LOC: RADNMMAIN 15:02
PROVIDERS: ATTEND Surgery
DX: R10.84 Generalized abdominal pain (principal)
CPT/HCPCS: 78227; A9537; J2805

== ENCOUNTER → 2020-02-22 | Outpatient (CLI) | payer MEDICARE, OTHER ==
--- NOTE | 2020-02-22 11:23 | USB ---
Reason for exam: clinical finding. History: Patient has history of other cancer at age 26. Family history of breast cancer in sister at age 43 and breast cancer in paternal aunt at age 50. Benign cyst aspiration of the right breast. Indicated problem(s): nipple abnormality in both breasts. Physical Findings: Nurse did not find any significant physical abnormalities on exam. US Breast RT Right complete breast ultrasound includes all four quadrants, the retroareolar region and axilla. Finding demonstrates a 0.4 x 0.4 x 0.2cm oval, cystic lesion at 12 o'clock, benign, benign ductal ectasia at 5 o'clock, 6 o'clock and at the posterior nipple and a 0.9 x 1.6 x 0.6cm benign lymph node at the axilla. These results were verbally communicated with the patient and result sheet given to the patient on 02/22/20. ASSESSMENT: Incomplete: need additional imaging evaluation, BI-RAD 0 RECOMMENDATION: Follow-up diagnostic mammogram of both breasts. (now as patient is overdue)
== END | disposition home or self-care (01) ==
LOC: RADUSWWP 08:59
PROVIDERS: ATTEND Surgery
DX: N60.01 Solitary cyst of right breast (principal)

== ENCOUNTER → 2020-03-06 | Day surgery (SDC) | payer MEDICARE, OTHER ==
[2020-03-05 10:56] VITALS: BMI 28.6
[~2020-03-06] MED LIST changes: +ACETAMINOPHEN TAB 500 MG TAB ONE; +ACETAMINOPHEN TAB 500 MG TAB PO ONE; +BUPIVACAIN-EPI 0.25%-1:200,000 30 ML VIAL SQ ONE; +CLINDAMYCIN 600 MG in DEXTROSE 5% IN WATER 50 ML IVPB STA; +DEXAMETHASONE SOD PHOSPHATE 10 MG/ML 1 ML VIAL IV ONE; +GLYCOPYRROLATE 0.2 MG/ML 2 ML VIAL ONE; +HEPARIN SODIUM,PORCINE 5,000 UNIT/ML 1 ML VIAL ONE; +HEPARIN SODIUM,PORCINE 5,000 UNIT/ML 1 ML VIAL SQ ONE; +HYDROcodone/APAP 5-325MG 1 EACH TAB ONE; +HYDROcodone/APAP 5-325MG 1 EACH TAB PO ONE; +KETOROLAC 30 MG/ML 1 ML VIAL IVP ONE; +LACTATED RINGERS 1,000 ML IV SCH; +LIDOCAINE 1% (10MG/ML) FOR IV START INTRADERMA ONE; +LIDOCAINE 1% INJ 10MG/ML (20 ML MDV) ONE; +MIDAZOLAM 2 MG/2 ML VIAL ONE; +NEOSTIGMINE 1 MG/ML 10 ML VIAL ONE; +ONDANSETRON 4 MG/2 ML VIAL IVP ONE; +ONDANSETRON 4 MG/2 ML VIAL ONE; +PROPOFOL 10 MG/ML 20 ML VIAL IV ONE; -SODIUM CHLORIDE 0.9% 1,000 ML IV ONE; +SUCCINYLCHOLINE CHLORIDE 100 MG/5 ML SYR IV ONE; +fentaNYL (PF) 50 MCG/ML 2 ML AMP ONE
--- NOTE | 2020-03-06 11:29 | P.GSHP ---
History of Present Illness H&P Date: 03/06/20 Chief Complaint: Right upper quadrant pain This a 54-year-old female presents today for laparoscopic cholestatic. Patient psychotropic quadrant pain. Recent ultrasound shows is evidence of cholelithiasis. Past Medical History Past Medical History: Asthma, Cancer, GERD/Reflux, Osteoarthritis (OA) Additional Past Medical History / Comment(s): kidney stones, arrhythmia, cervical/uterine cancer several years ago History of Any Multi-Drug Resistant Organisms: None Reported Past Surgical History: Bariatric Surgery, Bladder Surgery, Ear Surgery, Hysterectomy, Orthopedic Surgery, Tonsillectomy, Tubal Ligation Additional Past Surgical History / Comment(s): bladder neck suspension, mastoid facial decompression, rt ear stapes surgery, rt ankle plate and screws, egd, colonoscopy, sleeve gastrectomy 07-28-19, rectocele/cystocele Past Anesthesia/Blood Transfusion Reactions: Previous Problems w/ Anesthesia Additional Past Anesthesia/Blood Transfusion Reaction / Comment(s): pt states "came out of twilight anesthesia when doing procedure" Smoking Status: Current some day smoker - Past Family History Sister(s) Family Medical History: Cancer Additional Family Medical History / Comment(s): breast cancer Father Family Medical History: Cancer Additional Family Medical History / Comment(s): throat cancer Medications and Allergies Home Medications Medication Instructions Recorded Confirmed Type Albuterol Inhaler (Mhu) [Ventolin 1 - 2 puff INHALATION RT-Q6H PRN 03/01/19 03/06/20 History Hfa Inhaler] Albuterol Nebulized [Ventolin 2.5 mg INHALATION DAILY PRN 03/01/19 03/06/20 History Nebulized] Omeprazole 40 mg PO DAILY #30 cap 07/28/19 03/06/20 Rx Cholecalciferol [Vitamin D3 (25 2,000 units PO DAILY 09/25/19 03/06/20 History Mcg = 1000 Iu)] ALPRAZolam [Xanax] 1 mg PO QID 03/05/20 03/06/20 History Ascorbic Acid [Vitamin C] 500 mg PO DAILY 03/05/20 03/06/20 History Calcium Carbonate [Calcium] 600 mg PO DAILY 03/05/20 03/06/20 History Multivitamins, Thera [Multivitamin 1 tab PO DAILY 03/05/20 03/06/20 History (formulary)] Venlafaxine HCl [Effexor XR] 150 mg PO DAILY 03/05/20 03/06/20 History Vitamin E 400 unit PO DAILY 03/05/20 03/06/20 History Allergies Allergy/AdvReac Type Severity Reaction Status Date / Time azithromycin Allergy Nausea & Verified 03/06/20 10:33 Vomiting cephalexin [From Keflex] Allergy Nausea & Verified 03/06/20 10:33 Vomiting codeine Allergy SOB/GI Verified 03/06/20 10:33 DISTRESS divalproex sodium Allergy "felt like Verified 03/06/20 10:33 [From Depakote] I was going crazy" Influenza Virus Vaccines Allergy arm Verified 03/06/20 10:33 swelling and reddness for 4 months Iodinated Contrast Media Allergy Rash/Hives Verified 03/06/20 10:33 [Iodinated Contrast- Oral and IV Dye] iodine Allergy Rash/Hives Verified 03/06/20 10:33 Latex, Natural Rubber Allergy Rash/Hives/ Verified 03/06/20 10:33 WHEEZING oxycodone [From OxyContin] Allergy Itching Verified 03/06/20 10:33 Penicillins Allergy Unknown Verified 03/06/20 10:33 Childhood pseudoephedrine Allergy Dyspnea Verified 03/06/20 10:33 Sulfa (Sulfonamide Allergy Nausea & Verified 03/06/20 10:33 Antibiotics) Vomiting amitriptyline [From Elavil] AdvReac Confusion Verified 03/06/20 10:33 clonazepam AdvReac Confusion Verified 03/06/20 10:33 lurasidone AdvReac Nausea & Verified 03/06/20 10:33 Vomiting nitrofurantoin AdvReac Nausea & Verified 03/06/20 10:33 [From Macrobid] Vomiting tetracycline AdvReac Nausea & Verified 03/06/20 10:33 Vomiting valproic acid AdvReac Confusion Verified 03/06/20 10:33 Surgical - Exam Vital Signs Temp Pulse Resp BP Pulse Ox 96.9 F L 86 16 110/57 97 03/06/20 10:35 03/06/20 10:35 03/06/20 10:35 03/06/20 10:35 03/06/20 10:35 - General well developed, well nourished, no distress - Eyes PERRL - ENT normal pinna - Neck no masses - Respiratory normal expansion - Cardiovascular Rhythm: regular - Abdomen Abdomen: soft, non tender Assessment and Plan Assessment: Cholelithiasis We'll perform laparoscopic cholecystectomy
--- NOTE | 2020-03-06 12:41 | P.OP ---
Date of Procedure: 03/06/20 Preoperative Diagnosis: Cholecystitis Postoperative Diagnosis: Cholecystitis Procedure(s) Performed: Laparoscopic cholecystectomy Anesthesia: MARIANGEL Surgeon: Ten Yusuf Estimated Blood Loss (ml): 5 Pathology: other (Gallbladder) Condition: stable Disposition: PACU Description of Procedure: The patient was placed on the operating table. The patient received a general endotracheal tube anesthesia. The patients abdomen was prepped and draped in the usual sterile fashion. Through an infraumbilical stab incision, the fascia of the anterior abdominal wall was grasped with a pair of Kochers and then the Veress needle was placed in the peritoneal cavity. Position of the Veress needle was confirmed with positive drop test. The abdomen was then insufflated. After adequate insufflation, the 10 mm trocar was placed in the peritoneal cavity. Following this the laparoscope was placed in the peritoneal cavity. The patient was placed in the head-up, right side up position and then a 5 mm trocar was placed in the right lateral and right subcostal position under direct visualization. A 8 mm trocar was placed in the epigastric position. The gallbladder was grasped in the fundus and infundibulum. Traction on the gallbladder was placed in the lateral and the cephalad positions. The triangle of Calot was visualized.. The cystic duct was bluntly dissected until the union of the cystic duct and common bile duct was seen. A critical view of safety was achieved. The cystic duct was then divided and sealed with the Harmonic scissors. A PDS Endoloop was then placed throughout the cystic duct stump. The cystic artery divided and sealed with the Harmonic scissors. The gallbladder was then removed from the liver bed using Harmonic scissors. The gallbladder was then extracted through the epigastric port site. Operative field was checked for any bleeding spots and Harmonic scissors was used to coagulate the liver bed. The abdomen was irrigated. The trocars were removed. The skin was closed using interrupted 3-0 Vicryl suture. Dermabond dressing were applied. The patient tolerated the procedure well.
[2020-03-06] MEDS: fentaNYL (PF) 50 MCG/ML 2 ML AMP IV PRN ×2 (12:46→13:06)
[2020-03-06 12:58] VITALS: TEMP 97.9
[2020-03-06] MEDS: HYDROmorphone 1 MG/ML 1 ML SYRINGE IVP ONE ×2 (13:16→13:19)
[2020-03-06 13:53] VITALS: RESP 18
[2020-03-06 14:31] VITALS: BP 112/72; PULSE 77
== END ==
LOC: OR 10:01
PROVIDERS: ATTEND Surgery
DX: K80.10 Calculus of gallbladder with chronic cholecystitis without obstruction (principal); J45.909 Unspecified asthma, uncomplicated; M79.7 Fibromyalgia; K44.9 Diaphragmatic hernia without obstruction or gangrene; M19.90 Unspecified osteoarthritis, unspecified site; H91.90 Unspecified hearing loss, unspecified ear; Z90.710 Acquired absence of both cervix and uterus; Z90.49 Acquired absence of other specified parts of digestive tract; Z98.84 Bariatric surgery status; Z79.899 Other long term (current) drug therapy; Z87.442 Personal history of urinary calculi; K21.9 Gastro-esophageal reflux disease without esophagitis; Z90.89 Acquired absence of other organs; Z98.51 Tubal ligation status; Z98.890 Other specified postprocedural states; F17.200 Nicotine dependence, unspecified, uncomplicated; Z80.3 Family history of malignant neoplasm of breast; Z80.8 Family history of malignant neoplasm of other organs or systems; Z85.42 Personal history of malignant neoplasm of other parts of uterus; Z88.0 Allergy status to penicillin; Z88.1 Allergy status to other antibiotic agents; Z88.2 Allergy status to sulfonamides; Z88.5 Allergy status to narcotic agent; Z88.8 Allergy status to other drugs, medicaments and biological substances; Z91.040 Latex allergy status; Z88.7 Allergy status to serum and vaccine
CPT/HCPCS: 88304; 47562; J2250; J1644; J1100; J2710; J0690; J2405; J2001; J3010; J1885; J1170; J0330; J2704

== ENCOUNTER → 2020-05-06 | Outpatient (CLI) | payer MEDICARE, OTHER ==
[2020-05-06 13:41] VITALS: BP 118/78; PULSE 78; TEMP 98.4; BMI 27.1
--- NOTE | 2020-05-06 14:00 | P.HPBAR ---
Bariatric H&P - History & Physicial H&P Date: 05/06/20 History & Physicial: Visit/CC: nine month follow up Patient initial contact: Initial weight: 104.78 kg Initial weight in pounds: 231.00 Height: 5 ft 5.25 in Initial BMI: 38.1 Last weight: Current weight: 74.389 kg Current weight in pounds: 164.00 Current BMI: 27.1 [place] body weight (based on NIH guidelines): 57.266 kg Excess body weight loss: 63.9% The patient is a 54 year-old F who presents for Bariatric Assessment. Patient presents today for sleeve gastrectomy fall. She lost 13 pounds her last visit. She has some mild with GERD. Past Medical History Past Medical History: Asthma, Cancer, GERD/Reflux, Osteoarthritis (OA) Additional Past Medical History / Comment(s): kidney stones, arrhythmia, cervical/uterine cancer several years ago History of Any Multi-Drug Resistant Organisms: None Reported Past Surgical History: Bariatric Surgery, Bladder Surgery, Ear Surgery, Hysterectomy, Orthopedic Surgery, Tonsillectomy, Tubal Ligation Additional Past Surgical History / Comment(s): bladder neck suspension, mastoid facial decompression, rt ear stapes surgery, rt ankle plate and screws, egd, colonoscopy, sleeve gastrectomy 07-28-19, rectocele/cystocele Past Anesthesia/Blood Transfusion Reactions: Previous Problems w/ Anesthesia Additional Past Anesthesia/Blood Transfusion Reaction / Comm: pt states "came out of twilight anesthesia when doing procedure" Smoking Status: Current some day smoker - Past Family History Sister(s) Family Medical History: Cancer Additional Family Medical History / Comment(s): breast cancer Father Family Medical History: Cancer Additional Family Medical History / Comment(s): throat cancer Surgical - Exam Vital Signs Temp Pulse BP 98.4 F 78 118/78 05/06/20 13:40 05/06/20 13:40 05/06/20 13:40 - General well developed, well nourished, no distress - Eyes PERRL - ENT normal pinna - Neck no masses - Respiratory normal expansion - Cardiovascular Rhythm: regular - Abdomen Abdomen: soft, non tender Bariatric Assessment & Plan Plan: Status post sleeve gastrectomy. Patient is minimal be observed. She'll follow- up in 12 weeks. Bariatric Checklist Checklist: Plan: Checklist: EGD: 1. Hiatal hernia: 2. H. Pylori: HgbA1c: Vitamin D: Smoking: Current every day smoker Primary care physician referral: VICTORIANO PHELAN Psychiatry clearance: Cardiology clearance: Sleep study: Diet journal: VTE risk score: VTE risk level: Rehab needs at discharge:
[2020-05-06 14:42] LABS: HGB 14.2 gm/dL (11.4-16.0); MCH 27.9 pg (25.0-35.0); MCHC 32.3 g/dL (31.0-37.0); MCV 86.5 fL (80.0-100.0); Mean Platelet Volume 8.1; Platelet Count 232 k/uL (150-450); RBC 5.09 m/uL (3.80-5.40); RDW 13.1 % (11.5-15.5); WBC 11.5 k/uL (3.8-10.6)
[2020-05-07 03:29] LABS: ALT 22 U/L (8-44); AST 21 U/L (13-35); African American GFR (CKD) 84.6 (60.0-200.0); Albumin/Globulin Ratio 1.87 (1.60-3.17); Alkaline Phosphatase 65 U/L (41-126); BUN/Creat Ratio 14.44 Ratio (12.00-20.00); Calcium 9.8 mg/dL (8.7-10.3); Carbon Dioxide 29.2 mmol/L (21.6-31.8); Chloride 106 mmol/L (96-109); Globulin 2.3 g/dL (1.6-3.3); Glucose 101 mg/dL (70-110); Potassium 4.5 mmol/L (3.5-5.5); Sodium 143 mmol/L (135-145); Total Bilirubin 0.4 mg/dL (0.3-1.2); Total Protein 6.6 g/dL (6.2-8.2)
[2020-05-07 03:51] LABS: Folate, Serum >24.0 ng/mL
== END | disposition home or self-care (01) ==
LOC: BARWHC3 12:37
PROVIDERS: ATTEND Surgery
DX: Z48.815 Encounter for surgical aftercare following surgery on the digestive system (principal); E66.01 Morbid (severe) obesity due to excess calories; K21.9 Gastro-esophageal reflux disease without esophagitis; E55.9 Vitamin D deficiency, unspecified; E44.0 Moderate protein-calorie malnutrition; F17.200 Nicotine dependence, unspecified, uncomplicated; Z68.27 Body mass index [BMI] 27.0-27.9, adult; Z98.84 Bariatric surgery status; Z90.710 Acquired absence of both cervix and uterus; Z98.51 Tubal ligation status
CPT/HCPCS: 84425; 80053; 82607; 82746; 84443; 85027; 82306; 97803; 36415; G0463; 99211

== ENCOUNTER → 2020-07-29 | Outpatient (CLI) | payer MEDICARE, OTHER ==
[2020-07-29 13:05] VITALS: BP 102/60; PULSE 93; RESP 18; TEMP 98.2; BMI 26.1
[2020-07-29 15:02] LABS: HCT 42.8 % (34.0-46.0); HGB 14.5 gm/dL (11.4-16.0); MCH 29.9 pg (25.0-35.0); MCV 87.9 fL (80.0-100.0); Mean Platelet Volume 7.8; Platelet Count 231 k/uL (150-450); RBC 4.87 m/uL (3.80-5.40); RDW 12.8 % (11.5-15.5); WBC 10.7 k/uL (3.8-10.6)
--- NOTE | 2020-07-29 15:58 | P.HPBAR ---
Bariatric H&P - History & Physicial H&P Date: 07/29/20 History & Physicial: Visit/CC: follow up / 12 month follow up Patient initial contact: Initial weight: 104.78 kg Initial weight in pounds: 231.00 Height: 5 ft 5.25 in Initial BMI: 38.1 Last weight: Current weight: 71.713 kg Current weight in pounds: 158.10 Current BMI: 26.1 [place] body weight (based on NIH guidelines): 57.266 kg Excess body weight loss: 69.5% The patient is a 54 year-old F who presents for Bariatric Assessment. Patient presents today for sleeve gastrectomy follow-up. She's had some mild GERD. She's had excellent weight loss. He lost approximately 80 pounds. Her BMI is 26. Past Medical History Past Medical History: Asthma, Cancer, GERD/Reflux, Osteoarthritis (OA) Additional Past Medical History / Comment(s): kidney stones, arrhythmia, cervical/uterine cancer several years ago History of Any Multi-Drug Resistant Organisms: None Reported Past Surgical History: Bariatric Surgery, Bladder Surgery, Ear Surgery, Hysterectomy, Orthopedic Surgery, Tonsillectomy, Tubal Ligation Additional Past Surgical History / Comment(s): bladder neck suspension, mastoid facial decompression, rt ear stapes surgery, rt ankle plate and screws, egd, colonoscopy, sleeve gastrectomy 07-28-19, rectocele/cystocele Past Anesthesia/Blood Transfusion Reactions: Previous Problems w/ Anesthesia Additional Past Anesthesia/Blood Transfusion Reaction / Comm: pt states "came out of twilight anesthesia when doing procedure" Past Psychological History: Anxiety, Bipolar, Depression, Panic Disorder, PTSD Additional Psychological History / Comment(s): personality disorder Smoking Status: Current some day smoker Past Alcohol Use History: Rare Additional Past Alcohol Use History / Comment(s): smoker 30+ years on and off smoked 1 ppd Past Drug Use History: None Reported - Past Family History Sister(s) Family Medical History: Cancer Additional Family Medical History / Comment(s): breast cancer Father Family Medical History: Cancer Additional Family Medical History / Comment(s): throat cancer Surgical - Exam Vital Signs Temp Pulse Resp BP Pulse Ox 98.2 F 93 18 102/60 97 07/29/20 12:54 07/29/20 12:54 07/29/20 12:54 07/29/20 12:54 07/29/20 12:54 - General well developed, well nourished, no distress - Eyes PERRL - ENT normal pinna - Neck no masses - Respiratory normal expansion - Cardiovascular Rhythm: regular - Abdomen Abdomen: soft, non tender Results - Labs 07/29/20 14:41 Abnormal Lab Results - Last 24 Hours (Table) 07/29/20 Range/Units 14:41 WBC 10.7 H (3.8-10.6) k/uL Bariatric Assessment & Plan Plan: Status post sleeve yesterday. Patient GERD is minimal and willl be observed. She'll follow-up in 4 weeks. Bariatric Checklist Checklist: Plan: Checklist: EGD: 1. Hiatal hernia: 2. H. Pylori: HgbA1c: Vitamin D: Smoking: Current every day smoker Primary care physician referral: Dr. Megan Flores Psychiatry clearance: Cardiology clearance: Sleep study: Diet journal: VTE risk score: VTE risk level: Rehab needs at discharge:
[2020-07-30 03:57] LABS: ALT 17 U/L (8-44); AST 17 U/L (13-35); African American GFR (CKD) 84.6 (60.0-200.0); Albumin/Globulin Ratio 2.09 (1.60-3.17); Alkaline Phosphatase 59 U/L (41-126); BUN/Creat Ratio 13.33 Ratio (12.00-20.00); Calcium 9.9 mg/dL (8.7-10.3); Carbon Dioxide 29.4 mmol/L (21.6-31.8); Chloride 104 mmol/L (96-109); Globulin 2.2 g/dL (1.6-3.3); Glucose 107 mg/dL (70-110); Potassium 4.4 mmol/L (3.5-5.5); Sodium 141 mmol/L (135-145); Total Bilirubin 0.4 mg/dL (0.3-1.2); Total Protein 6.8 g/dL (6.2-8.2)
[2020-07-30 04:40] LABS: Folate, Serum >24.0 ng/mL
== END | disposition home or self-care (01) ==
LOC: BARWHC3 12:43
PROVIDERS: ATTEND Surgery
DX: Z48.815 Encounter for surgical aftercare following surgery on the digestive system (principal); Z98.84 Bariatric surgery status; K21.9 Gastro-esophageal reflux disease without esophagitis; E44.0 Moderate protein-calorie malnutrition; E55.9 Vitamin D deficiency, unspecified
CPT/HCPCS: 84425; 80053; 82607; 82746; 84443; 85027; 82306; G0463; 99211

== ENCOUNTER → 2021-01-20 | Outpatient (CLI) | payer MEDICARE, OTHER ==
[2021-01-20 14:08] VITALS: BP 106/74; PULSE 91; RESP 18; TEMP 98; BMI 25.1
--- NOTE | 2021-01-28 12:41 | P.HPBAR ---
Bariatric H&P - History & Physicial H&P Date: 01/20/21 History & Physicial: Visit/CC: follow up Patient initial contact: Initial weight: 104.78 kg Initial weight in pounds: 231.00 Height: 5 ft 5.25 in Initial BMI: 38.1 Last weight: Current weight: 68.946 kg Current weight in pounds: 152.00 Current BMI: 25.1 [place] body weight (based on NIH guidelines): 57.266 kg Excess body weight loss: 75.4% The patient is a 55 year-old F who presents for Bariatric Assessment. Patient presents today for sleeve gastric fall. She is an excellent weight loss. She's had some mild GERD. 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 Past Medical History Past Medical History: Asthma, Cancer, GERD/Reflux, Osteoarthritis (OA) Additional Past Medical History / Comment(s): kidney stones, arrhythmia, cervical/uterine cancer several years ago History of Any Multi-Drug Resistant Organisms: None Reported Past Surgical History: Bariatric Surgery, Bladder Surgery, Ear Surgery, Hysterectomy, Orthopedic Surgery, Tonsillectomy, Tubal Ligation Additional Past Surgical History / Comment(s): bladder neck suspension, mastoid facial decompression, rt ear stapes surgery, rt ankle plate and screws, egd, colonoscopy, sleeve gastrectomy 07-28-19, rectocele/cystocele Past Anesthesia/Blood Transfusion Reactions: Previous Problems w/ Anesthesia Additional Past Anesthesia/Blood Transfusion Reaction / Comm: pt states "came out of twilight anesthesia when doing procedure" Past Psychological History: Anxiety, Bipolar, Depression, Panic Disorder, PTSD Additional Psychological History / Comment(s): personality disorder Smoking Status: Current some day smoker Past Alcohol Use History: Rare Additional Past Alcohol Use History / Comment(s): smoker 30+ years on and off sm oked 1 ppd Past Drug Use History: None Reported - Past Family History Sister(s) Family Medical History: Cancer Additional Family Medical History / Comment(s): breast cancer Father Family Medical History: Cancer Additional Family Medical History / Comment(s): throat cancer Surgical - Exam Vital Signs Temp Pulse Resp BP 98 F 91 18 106/74 01/20/21 13:56 01/20/21 13:56 01/20/21 13:56 01/20/21 13:56 - General well developed, well nourished, no distress - Eyes PERRL - ENT normal pinna - Neck no masses - Respiratory normal expansion - Cardiovascular Rhythm: regular - Abdomen Abdomen: soft, non tender Bariatric Assessment & Plan Plan: Resolving obesity. Patient has excellent weight loss. Her GERD is minimal will be observed. Patient was given information on panniculus. We'll attempt obtain short insurance authorization.. She'll follow-up in one month. Bariatric Checklist Checklist: Plan: Checklist: EGD: 1. Hiatal hernia: 2. H. Pylori: HgbA1c: Vitamin D: Smoking: Current every day smoker Primary care physician referral: Dr. Megan Flores Psychiatry clearance: Cardiology clearance: Sleep study: Diet journal: VTE risk score: VTE risk level: Rehab needs at discharge:
== END ==
LOC: BARWHC3 13:17
PROVIDERS: ATTEND Surgery
DX: E66.9 Obesity, unspecified (principal); K21.9 Gastro-esophageal reflux disease without esophagitis; J45.909 Unspecified asthma, uncomplicated; M19.90 Unspecified osteoarthritis, unspecified site; Z98.84 Bariatric surgery status; F41.0 Panic disorder [episodic paroxysmal anxiety]; F31.9 Bipolar disorder, unspecified; F17.200 Nicotine dependence, unspecified, uncomplicated; Z88.1 Allergy status to other antibiotic agents; Z88.5 Allergy status to narcotic agent; Z88.7 Allergy status to serum and vaccine; Z91.041 Radiographic dye allergy status; Z91.040 Latex allergy status; Z88.2 Allergy status to sulfonamides; Z88.8 Allergy status to other drugs, medicaments and biological substances; Z68.25 Body mass index [BMI] 25.0-25.9, adult
CPT/HCPCS: 99211

== ENCOUNTER → 2021-04-28 | Outpatient (CLI) | payer MEDICARE, OTHER ==
[2021-04-28 14:20] VITALS: BP 104/84; PULSE 90; TEMP 98; BMI 24.7
--- NOTE | 2021-05-13 10:55 | P.HPBAR ---
Bariatric H&P - History & Physicial H&P Date: 04/28/21 History & Physicial: Visit/CC: augusto consult Patient initial contact: Initial weight: 104.78 kg Initial weight in pounds: 231.00 Height: 5 ft 5.25 in Initial BMI: 38.1 Last weight: Current weight: 68.039 kg Current weight in pounds: 150.00 Current BMI: 24.7 [place] body weight (based on NIH guidelines): 57.266 kg Excess body weight loss: 77.3% The patient is a 55 year-old F who presents for Bariatric Assessment. She presents today for patch fall. She's had some mild GERD. She's also developed a panniculus due to her extreme weight loss. Past Medical History Past Medical History: Asthma, Cancer, GERD/Reflux, Osteoarthritis (OA) Additional Past Medical History / Comment(s): kidney stones, arrhythmia, cervical/uterine cancer several years ago History of Any Multi-Drug Resistant Organisms: None Reported Past Surgical History: Bariatric Surgery, Bladder Surgery, Ear Surgery, Hysterectomy, Orthopedic Surgery, Tonsillectomy, Tubal Ligation Additional Past Surgical History / Comment(s): bladder neck suspension, mastoid facial decompression, rt ear stapes surgery, rt ankle plate and screws, egd, colonoscopy, sleeve gastrectomy 07-28-19, rectocele/cystocele Past Anesthesia/Blood Transfusion Reactions: Previous Problems w/ Anesthesia Additional Past Anesthesia/Blood Transfusion Reaction / Comm: pt states "came out of twilight anesthesia when doing procedure" Past Psychological History: Anxiety, Bipolar, Depression, Panic Disorder, PTSD Additional Psychological History / Comment(s): personality disorder Smoking Status: Current some day smoker Past Alcohol Use History: Rare Additional Past Alcohol Use History / Comment(s): smoker 30+ years on and off smoked 1 ppd Past Drug Use History: None Reported - Past Family History Sister(s) Family Medical History: Cancer Additional Family Medical History / Comment(s): breast cancer Father Family Medical History: Cancer Additional Family Medical History / Comment(s): throat cancer Surgical - Exam Vital Signs Temp Pulse BP 98 F 90 104/84 04/28/21 14:17 04/28/21 14:17 04/28/21 14:17 - General well developed, well nourished, no distress - Eyes PERRL - ENT normal pinna - Neck no masses - Respiratory normal expansion - Cardiovascular Rhythm: regular - Abdomen Well-formed panniculus evidence of chronic skin irritation Abdomen: soft, non tender Bariatric Assessment & Plan Plan: GERD. Her GERD is minimal will be observed.. Patient's panniculus has evidence of chronic skin irritation. We will attempt to obtain insurance authorization. Colectomy. Bariatric Checklist Checklist: Plan: Checklist: EGD: 1. Hiatal hernia: 2. H. Pylori: HgbA1c: Vitamin D: Smoking: Current every day smoker Primary care physician referral: Dr. Megan Flores Psychiatry clearance: Cardiology clearance: Sleep study: Diet journal: VTE risk score: VTE risk level: Rehab needs at discharge:
== END ==
LOC: BARWHC3 13:18
PROVIDERS: ATTEND Surgery
DX: Z09 Encounter for follow-up examination after completed treatment for conditions other than malignant neoplasm (principal); J45.909 Unspecified asthma, uncomplicated; K21.9 Gastro-esophageal reflux disease without esophagitis; M19.90 Unspecified osteoarthritis, unspecified site; F31.9 Bipolar disorder, unspecified; F41.0 Panic disorder [episodic paroxysmal anxiety]; F43.10 Post-traumatic stress disorder, unspecified; F17.210 Nicotine dependence, cigarettes, uncomplicated; Z98.84 Bariatric surgery status; Z88.1 Allergy status to other antibiotic agents; Z88.5 Allergy status to narcotic agent; Z88.7 Allergy status to serum and vaccine; Z91.040 Latex allergy status; Z91.041 Radiographic dye allergy status; Z88.0 Allergy status to penicillin; Z88.2 Allergy status to sulfonamides; Z88.8 Allergy status to other drugs, medicaments and biological substances
CPT/HCPCS: 99211

== ENCOUNTER 2021-07-07 06:52 | Observation (INO) | payer MEDICARE, OTHER ==
[2021-07-03 12:33] VITALS: BMI 24.1
[~2021-07-07 06:52] MED LIST changes: -ACETAMINOPHEN TAB 500 MG TAB ONE; -ACETAMINOPHEN TAB 500 MG TAB PO ONE; -BUPIVACAIN-EPI 0.25%-1:200,000 30 ML VIAL SQ ONE; -CLINDAMYCIN 600 MG in DEXTROSE 5% IN WATER 50 ML IVPB STA; -DEXAMETHASONE SOD PHOSPHATE 10 MG/ML 1 ML VIAL IV ONE; +DEXAMETHASONE SOD PHOSPHATE 4 MG/ML 1 ML VIAL IV ONE; -GLYCOPYRROLATE 0.2 MG/ML 2 ML VIAL ONE; -HEPARIN SODIUM,PORCINE 5,000 UNIT/ML 1 ML VIAL ONE; -HEPARIN SODIUM,PORCINE 5,000 UNIT/ML 1 ML VIAL SQ ONE; -HYDROcodone/APAP 5-325MG 1 EACH TAB ONE; -HYDROcodone/APAP 5-325MG 1 EACH TAB PO ONE; -KETOROLAC 30 MG/ML 1 ML VIAL IVP ONE; -LACTATED RINGERS 1,000 ML IV SCH; -LIDOCAINE 1% (10MG/ML) FOR IV START INTRADERMA ONE; -LIDOCAINE 1% INJ 10MG/ML (20 ML MDV) ONE; -MIDAZOLAM 2 MG/2 ML VIAL ONE; -NEOSTIGMINE 1 MG/ML 10 ML VIAL ONE; -ONDANSETRON 4 MG/2 ML VIAL ONE; -PROPOFOL 10 MG/ML 20 ML VIAL IV ONE; -SUCCINYLCHOLINE CHLORIDE 100 MG/5 ML SYR IV ONE; +fentaNYL (PF) 50 MCG/ML 2 ML AMP IV PRN; -fentaNYL (PF) 50 MCG/ML 2 ML AMP ONE
[2021-07-07] MEDS ORDERED: LACTATED RINGERS 1,000 ML IV ONE ×4 (07:31→12:36)
[2021-07-07] MEDS ORDERED: HEPARIN SODIUM,PORCINE/PF 5,000 UNIT/0.5 ML SYRINGE SQ ONE (07:52)
[2021-07-07] MEDS ORDERED: HEPARIN SODIUM,PORCINE 5,000 UNIT/ML 1 ML VIAL SQ ONE ×2 (07:53→08:29)
[2021-07-07] MEDS ORDERED: MIDAZOLAM 2 MG/2 ML VIAL IVP ONE (08:11)
[2021-07-07] MEDS ORDERED: fentaNYL (PF) 50 MCG/ML 2 ML AMP IVP ONE (08:11)
--- NOTE | 2021-07-07 08:45 | P.GSHP ---
History of Present Illness H&P Date: 07/07/21 Chief Complaint: Panniculus Is a 55-year-old female who has a well-healed panniculus. Patient underwent previous gastric sleeve surgery she's lost in excess of 100 pounds. She has a well-formed panniculus which hangs lower pubic area. Patient is a chronic problems with skin irritations. Past Medical History Past Medical History: Asthma, Cancer, GERD/Reflux, Osteoarthritis (OA), Rheumatoid Arthritis (RA) Additional Past Medical History / Comment(s): kidney stones, arrhythmia, cervical/uterine cancer several years ago. bells-palsy x8 History of Any Multi-Drug Resistant Organisms: None Reported Past Surgical History: Bariatric Surgery, Bladder Surgery, Ear Surgery, Hysterectomy, Orthopedic Surgery, Tonsillectomy, Tubal Ligation Additional Past Surgical History / Comment(s): bladder neck suspension, mastoid facial decompression, rt ear stapes surgery, rt ankle plate and screws, egd, colonoscopy, sleeve gastrectomy 07-28-19, rectocele/cystocele Past Anesthesia/Blood Transfusion Reactions: Previous Problems w/ Anesthesia, Postoperative Nausea & Vomiting (PONV) Additional Past Anesthesia/Blood Transfusion Reaction / Comment(s): pt states "came out of twilight anesthesia when doing procedure" Smoking Status: Former smoker - Past Family History Sister(s) Family Medical History: Cancer Additional Family Medical History / Comment(s): breast cancer Father Family Medical History: Cancer Additional Family Medical History / Comment(s): throat cancer Medications and Allergies Home Medications Medication Instructions Recorded Confirmed Type Albuterol Inhaler (Mhu) [Ventolin 1 - 2 puff INHALATION RT-Q6H PRN 03/01/19 07/03/21 History Hfa Inhaler] Albuterol Nebulized [Ventolin 2.5 mg INHALATION DAILY PRN 03/01/19 07/03/21 History Nebulized] Omeprazole 40 mg PO DAILY #30 cap 07/28/19 07/03/21 Rx ALPRAZolam [Xanax] 2 mg PO HS 03/05/20 07/03/21 History Ascorbic Acid [Vitamin C] 500 mg PO DAILY 03/05/20 07/03/21 History Multivitamins, Thera [Multivitamin 1 tab PO DAILY 03/05/20 07/03/21 History (formulary)] Venlafaxine HCl [Effexor XR] 300 mg PO DAILY 03/05/20 07/03/21 History Vitamin E 400 unit PO DAILY 03/05/20 07/03/21 History Biotin 5 mg PO DAILY 07/29/20 07/03/21 History Folic Acid 0.8 mg PO DAILY 07/29/20 07/03/21 History Galcanezumab-Gnlm [Emgality] 120 mg SQ QMONTHLY 01/20/21 07/03/21 History [place]-3 Fatty Acids/Fish Oil [Fish 1 each PO DAILY 01/20/21 07/03/21 History Oil 1,000 mg Softgel] Calcium Citrate 250 mg PO DAILY 07/03/21 07/03/21 History Cholecalciferol (Vitamin D3) 100 mcg PO DAILY 07/03/21 07/03/21 History [Vitamin D3 (125 MCG = 5,000 IU)] Cyanocobalamin (Vitamin B-12) 1,000 mcg PO DAILY 07/03/21 07/03/21 History [Vitamin B-12] Magnesium Oxide 400 mg PO DAILY 07/03/21 07/03/21 History Rosuvastatin Calcium 5 mg PO HS 07/03/21 07/03/21 History hydrOXYzine pamoate [Vistaril] 50 mg PO DAILY 07/03/21 07/03/21 History Allergies Allergy/AdvReac Type Severity Reaction Status Date / Time azithromycin Allergy Nausea & Verified 04/28/21 14:36 Vomiting cephalexin [From Keflex] Allergy Nausea & Verified 04/28/21 14:36 Vomiting codeine Allergy SOB/GI Verified 04/28/21 14:36 DISTRESS divalproex sodium Allergy "felt like Verified 04/28/21 14:36 [From Depakote] I was going crazy" Influenza Virus Vaccines Allergy arm Verified 04/28/21 14:36 swelling and reddness for 4 months Iodinated Contrast Media Allergy Rash/Hives Verified 04/28/21 14:36 [Iodinated Contrast- Oral and IV Dye] iodine Allergy Rash/Hives Verified 04/28/21 14:36 Latex, Natural Rubber Allergy Rash/Hives/ Verified 04/28/21 14:36 WHEEZING morphine Allergy Itching Verified 07/03/21 12:11 oxycodone [From OxyContin] Allergy Itching Verified 04/28/21 14:36 Penicillins Allergy Unknown Verified 04/28/21 14:36 Childhood pseudoephedrine Allergy Dyspnea Verified 04/28/21 14:36 Sulfa (Sulfonamide Allergy Nausea & Verified 04/28/21 14:36 Antibiotics) Vomiting amitriptyline [From Elavil] AdvReac Confusion Verified 04/28/21 14:36 clonazepam AdvReac Confusion Verified 04/28/21 14:36 lurasidone AdvReac Nausea & Verified 04/28/21 14:36 Vomiting nitrofurantoin AdvReac Nausea & Verified 04/28/21 14:36 [From Macrobid] Vomiting tetracycline AdvReac Nausea & Verified 04/28/21 14:36 Vomiting valproic acid AdvReac Confusion Verified 04/28/21 14:36 Surgical - Exam Vital Signs Temp Pulse Resp BP Pulse Ox 97.8 F 85 18 116/56 97 07/07/21 07:14 07/07/21 07:14 07/07/21 07:14 07/07/21 07:14 07/07/21 07:14 - General well developed, well nourished, no distress - Eyes PERRL - ENT normal pinna - Neck no masses - Respiratory normal expansion - Cardiovascular Rhythm: regular - Abdomen Well-formed panniculus Abdomen: soft, non tender Assessment and Plan Assessment: Well-formed panniculus. We'll perform panniculectomy.
[2021-07-07] MEDS ORDERED: HYDROmorphone (PF) 1 MG/ML ONE (09:02)
[2021-07-07] MEDS ORDERED: LIDOCAINE 1% INJ 10MG/ML (20 ML MDV) ONE (09:02)
[2021-07-07] MEDS ORDERED: SODIUM CHLORIDE 0.9% (PF) 10 ML VIAL ONE (09:02)
[2021-07-07] MEDS ORDERED: fentaNYL (PF) 50 MCG/ML 2 ML AMP ONE (09:02)
[2021-07-07] MEDS ORDERED: NEOSTIGMINE 1 MG/ML 10 ML VIAL ONE (09:02)
[2021-07-07] MEDS ORDERED: SUCCINYLCHOLINE CHLORIDE 100 MG/5 ML SYR IV ONE (09:02)
[2021-07-07] MEDS ORDERED: MIDAZOLAM 2 MG/2 ML VIAL ONE (09:02)
[2021-07-07] MEDS ORDERED: ROPIVACAINE 5 MG/ML 30 ML VIAL ONE (09:02)
[2021-07-07] MEDS ORDERED: GLYCOPYRROLATE 0.2 MG/ML 2 ML VIAL ONE (09:02)
[2021-07-07] MEDS ORDERED: PROPOFOL 10 MG/ML 20 ML VIAL IV ONE (09:02)
[2021-07-07] MEDS ORDERED: ROCURONIUM 10 MG/ML (5 ML VIAL) IV ONE (09:02)
--- NOTE | 2021-07-07 09:02 | P.ANPRN ---
Procedure Note - Anesthesia - Nerve Block Performed Bilateral Erector Spinae Single Time Out Performed: Yes ([id number]) Date of Procedure: 07/07/21 Procedure Start Time: :11 Procedure Stop Time: : Location of Patient: PreOp Indication: Acute Post-Operative Pain, Requested by Surgeon Specifically requested for management of pain by DrMarques: Ten Yusuf Sedation Type: Sedate with meaningful contact maintained Preparation: Sterile Prep Position: Prone Catheter: None Needle Types: Pajunk Needle Gauge: 21 Ultrasound used to visualize needle placement: Yes Ultrasound used to observe medication spread: Yes Injectate: 0.5% Ropivacaine (see comment for volume) (15cc + 15cc nacl pf each side) Blood Aspirated: No Pain Paresthesia on Injection Noted: No Resistance on Injection: Normal Image Stored and Saved: Yes Events: Uneventful and Well Tolerated
--- NOTE | 2021-07-07 10:58 | P.OP ---
Date of Procedure: 07/07/21 Preoperative Diagnosis: Panniculus Postoperative Diagnosis: Panniculus Procedure(s) Performed: P panniculectomy Anesthesia: MARIANGEL Surgeon: Ten Yusuf Estimated Blood Loss (ml): 50 Pathology: none sent Condition: stable Disposition: PACU Description of Procedure: PROCEDURE: The patient was placed on the operating table in supine position and received general anesthetic. The abdomen was prepped and draped in the usual sterile fashion. The lower skin incision was then made after the skin was marked with a marker. The incision ran from the pubic area to the level of the anterosuperior iliac spine. Using blunt and sharp dissection and electrocautery the subcutaneous tissues were then dissected down to the level of the fascia external oblique. Next, a madison shaped incision was made around the umbilicus and the umbilicus was then dissected down to the level of the fascia external oblique. Care was taken to ensure that the umbilical stalk was wide enough in order to maintain viability of the umbilicus. After the umbilicus was dissected a 0 Vicryl suture was used to orientate the umbilicus. The suture was placed at the 12 o'clock position of the umbilicus. Following this the dissection was then made from the inferior pannicular incision cephalad. The xiphoid and costal margins were the limits of the dissection. Several small perforating vessels were ligated and cautery was used to maintain hemostasis. Once the dissection was performed the panniculus was then divided in the midline from the level of the umbilicus towards the pubic area. Downward and lateral traction was then placed on the abdominal wall and the skin was suitably marked for transection of the umbilicus. The skin was then incised and the Bovie was used for dissection of the pannicular flap. Next, three 10-Tongan IBAN drains were placed in the wound and brought out through separate stab incisions at the level of the pubic area. The drains were secured to the skin using 3-0 nylon. After the IBAN drains were secured, Ivy's fascia was closed with interrupted 0 Vicryl sutures and then the skin was closed with running 3-0 Monocryl sutures. Prior to closure of the abdominal wall care was taken to ensure that both the abdominal wall and the abdominal wall flap were hemostatic. Next, the umbilicus was reattached to the abdominal wall. A marking line was made across the top of the iliac crest and this line intercepted with the midline abdominal wall line that had been previously made in the preoperative hold area. A small semicircular U-shaped incision was created at the intersection of the two lines and the umbilicus was brought up through this incision. The umbilicus was then trimmed and secured to the skin using 3-0 Monocryl sutures. At this point the drains were placed to suction. The abdomen was cleaned and then sterile tape was placed over top of the incisions. Abdominal binder was then placed. The patient tolerated the procedure well. The patient was sent to recovery room in stable condition.
[2021-07-07] MEDS ORDERED: ACETAMINOPHEN TAB 325 MG TAB PO PRN (10:59)
[2021-07-07] MEDS ORDERED: ONDANSETRON 4 MG/2 ML VIAL IVP PRN (10:59)
[2021-07-07] MEDS ORDERED: NALOXONE 0.4 MG/ML 1 ML VIAL IV PRN (10:59)
[2021-07-07] MEDS ORDERED: HYDROmorphone 0.5 MG/0.5 ML SYRINGE IVP ONE (11:37)
[2021-07-07] MEDS ORDERED: diphenhydrAMINE 50 MG/ML 1 ML VIAL ONE (11:50)
[2021-07-07] MEDS ORDERED: diphenhydrAMINE 50 MG/ML 1 ML VIAL IVP ONE ×3 (11:57→12:40)
[2021-07-07] MEDS ORDERED: ALBUTEROL NEBULIZED 2.5 MG/3 ML INHALATION PRN (13:37)
[2021-07-07] MEDS: LACTATED RINGERS 1,000 ML IV SCH (14:26)
[2021-07-07] MEDS: SODIUM CHLORIDE 0.9% 1,000 ML IV SCH (14:28)
[2021-07-07] MEDS: HYDROmorphone 0.5 MG/0.5 ML SYRINGE IVP PRN ×2 (16:16→20:27)
[2021-07-07 16:52] LABS: Basophils % (A) 0 %; Eosinophils % (A) 0 %; HCT 34.1 % (34.0-46.0); HGB 12.1 gm/dL (11.4-16.0); Lymphocytes # (A) 1.2 k/uL (1.0-4.8); Lymphocytes % (A) 10 %; MCH 30.3 pg (25.0-35.0); MCHC 35.3 g/dL (31.0-37.0); MCV 85.8 fL (80.0-100.0); Mean Platelet Volume 8.1; Monocytes # (A) 0.4 k/uL (0-1.0); Monocytes % (A) 3 %; Neutrophils # (A) 10.4 k/uL (1.3-7.7); Neutrophils % (A) 86 %; Platelet Count 214 k/uL (150-450); RBC 3.98 m/uL (3.80-5.40); RDW 13.1 % (11.5-15.5); WBC 12.1 k/uL (3.8-10.6)
[2021-07-07 16:58] LABS: African American GFR (CKD) >90 (>60 ml/min/1.73 sqM); Anion Gap 4 mmol/L; Blood Urea Nitrogen 8 mg/dL (7-17); Calcium 8.6 mg/dL (8.4-10.2); Carbon Dioxide 26 mmol/L (22-30); Chloride 107 mmol/L (98-107); Glucose 123 mg/dL (74-99); Non-African American GFR(CKD) >90 (>60 ml/min/1.73 sqM); Potassium 4.7 mmol/L (3.5-5.1); Sodium 137 mmol/L (137-145)
--- NOTE | 2021-07-07 17:36 | CONS ---
CONSULTATION DATE OF SERVICE: 07/07/2021. REASON FOR CONSULTATION: Advice regarding asthma, GERD, and other multiple medical issues requested by Dr. Yusuf. HISTORY OF PRESENT ILLNESS: This 55-year-old woman with a past medical history of asthma, GERD, DJD, rheumatoid arthritis, underwent panniculectomy. The patient is found to have some dehydration otherwise. Patient being closely monitored. No chest pain. No palpitations. No fever. PAST MEDICAL HISTORY: Past medical history reviewed. Past medical asthma, GERD, DJD, rheumatoid arthritis, kidney stones, bariatric surgery, bladder surgery. MEDICATIONS: Home medications are reviewed and include: Vistaril, vitamin E, Rosuvastatin, omega-3 fatty acids, multivitamin, Emgality, vitamin D3, biotin, vitamin C, Xanax. Doses reviewed. ALLERGIES: MULTIPLE ALLERGIES INCLUDING ZITHROMAX, CEPHALEXIN, CODEINE, DEPAKOTE, INFLUENZA, LATEX, MORPHINE, OXYCODONE, PENICILLIN, SUDAFED, SULFA, ELAVIL, KLONOPIN, NITROFURANTOIN, TETRACYCLINE, VALPROIC ACID. FAMILY HISTORY: History of breast cancer. SOCIAL HISTORY: Previous history of smoking. No history of alcohol intake. REVIEW OF SYSTEMS: Could not be taken, the patient is slightly drowsy after surgery. PHYSICAL EXAMINATION: Patient has dehydration present, otherwise pulse 90, blood pressure 110/70, respirations 16, temperature 97.7, pulse ox 100% on 2 L. HEENT: Conjunctivae normal. Oral mucosa is dry. NECK: No JVD. CARDIOVASCULAR: S1, S2. RESPIRATIONS: Breath sounds diminished in the bases. A few scattered rhonchi. ABDOMEN: Soft, status post surgery. LEGS: No edema. No swelling. NERVOUS SYSTEM: Higher functions as mentioned. Moves all four limbs. No focal motor or sensory deficits. LYMPHATICS: No lymph nodes palpable in the neck, axillae or groin. SKIN: No ulcer, no rash and no bleeding. JOINTS: No active deforming arthropathy. LABS: WBC 10.7 and hemoglobin A1c 6.1 and cholesterol is 217, which was done in 2019. ASSESSMENT: 1. Status post panniculectomy. 2. Dehydration. 3. Asthma. 4. Gastroesophageal reflux disease. 5. Degenerative joint disease. 6. Rheumatoid arthritis. 7. Kidney stones. 8. History of cardiac arrhythmias. 9. History of bariatric surgery. 10.Bladder surgery. 11.History of degenerative joint disease. 12.History of bladder neck suspension. 13.Anxiety, bipolar depression, panic disorder, PTSD. 14.History of agoraphobia. 15.History of borderline personality. 16.Remote history of nicotine dependence. 17.FULL CODE. RECOMMENDATIONS AND DISCUSSION: This 55-year-old woman who presented with multiple medical issues after surgery, at this time I recommend continue IV fluids. Otherwise I would also recommend baseline labs. Resume the home medications. DVT prophylaxis. Incentive spirometry. We will follow the patient closely. Patient will be asked to follow up with primary closely after discharge. Thank you Dr. Yusuf for letting us participate in the care of this patient. MMODL / IJN: [id number] / CHELSI
[2021-07-07] MEDS: ALPRAZolam 1 MG TAB PO SCH (20:25)
[2021-07-07] MEDS: ATORVASTATIN 10 MG TAB PO SCH (20:25)
[2021-07-08] MEDS: HYDROmorphone 0.5 MG/0.5 ML SYRINGE IVP PRN ×4 (02:08→19:14)
[2021-07-08] MEDS: SODIUM CHLORIDE 0.9% 1,000 ML IV SCH ×3 (05:34→14:51)
[2021-07-08] MEDS: LACTATED RINGERS 1,000 ML IV SCH (07:26)
[2021-07-08] MEDS: PANTOPRAZOLE 40 MG TABLET PO SCH (07:36)
[2021-07-08] MEDS: hydrOXYzine HCL 25 MG TAB PO SCH (07:37)
[2021-07-08] MEDS: VENLAFAXINE HCL ER 150 MG CAP PO SCH (07:37)
[2021-07-08] MEDS: ENOXAPARIN 40 MG/0.4 ML SYRINGE SQ SCH (07:37)
[2021-07-08 09:13] LABS: Basophils % (A) 0 %; Eosinophils # (A) 0.2 k/uL (0-0.7); Eosinophils % (A) 1 %; HCT 32.7 % (34.0-46.0); Lymphocytes # (A) 3.4 k/uL (1.0-4.8); Lymphocytes % (A) 29 %; MCH 30.2 pg (25.0-35.0); MCHC 33.5 g/dL (31.0-37.0); MCV 89.9 fL (80.0-100.0); Mean Platelet Volume 8.1; Monocytes # (A) 0.8 k/uL (0-1.0); Monocytes % (A) 7 %; Neutrophils # (A) 7.1 k/uL (1.3-7.7); Neutrophils % (A) 61 %; Platelet Count 193 k/uL (150-450); RBC 3.63 m/uL (3.80-5.40); RDW 12.9 % (11.5-15.5); WBC 11.7 k/uL (3.8-10.6)
--- NOTE | 2021-07-08 12:32 | P.PN ---
Subjective Progress Note Date: 07/08/21 CHIEF COMPLAINT: Panniculectomy HISTORY OF PRESENT ILLNESS: Patient is status post panniculectomy. Postop day #1. She is complaining of pain and pain in the lower rib cage. Denies any nausea or vomiting. Afebrile. Mild tachycardia, heart rate 102. WBC is 11.7 hemoglobin 11.0 Patient seen and examined with Dr. osuna PHYSICAL EXAM: VITAL SIGNS: Reviewed. GENERAL: Well-developed in no acute distress. HEENT: No sclera icterus. Extraocular movements grossly intact. Moist buccal mucosa. Head is atraumatic, normocephalic. ABDOMEN: Soft. Nondistended. Incision site clean dry and intact. 2 IBAN drains with serosanguineous output NEUROLOGIC: Alert and oriented. Cranial nerves II through XII grossly intact. ASSESSMENT: 1. Panniculitis status post panniculectomy PLAN: -Encourage patient to increase activity level -Encourage patient to use the oral pain medication -Discontinue Galeano catheter -Continue regular diet -Anticipate discharge possibly tomorrow Physician Topology Teacher note has been reviewed by physician. Signing provider agrees with the documented findings, assessment, and plan of care. Objective - Vital Signs Vital signs: Vital Signs Temp 98.2 F 07/08/21 11:37 Pulse 102 H 07/08/21 11:37 Resp 20 07/08/21 11:37 BP 100/66 07/08/21 11:37 Pulse Ox 91 L 07/08/21 11:37 Intake & Output 07/07/21 07/08/21 07/08/21 18:59 06:59 18:59 Intake Total 1999 Output Total 1200 695 Balance 800 -695 Weight 68 kg Intake: IV 1999 Output: Drainage 50 95 Left Lower Anterior 55 Right Lower Abdomen 50 40 Urine 1100 600 Estimated Blood Loss 50 Other: Voiding Method Indwelling Catheter Indwelling Catheter - Labs CBC & Chem 7: 07/08/21 08:17 07/07/21 16:00 Labs: Abnormal Lab Results - Last 24 Hours (Table) 07/07/21 07/07/21 07/08/21 Range/Units 16:00 16:00 08:17 WBC 12.1 H 11.7 H (3.8-10.6) k/uL RBC 3.63 L (3.80-5.40) m/uL Hgb 11.0 L (11.4-16.0) gm/dL Hct 32.7 L (34.0-46.0) % Neutrophils # 10.4 H (1.3-7.7) k/uL Glucose 123 H (74-99) mg/dL
[2021-07-08] MEDS: HYDROcodone/APAP 5-325MG 1 EACH TAB PO PRN (17:21)
--- NOTE | 2021-07-08 17:36 | PN ---
PROGRESS NOTE DATE OF SERVICE: 07/08/2021 This 55-year-old woman who was admitted after panniculectomy is being closely monitored. No chest pain. No palpitations. No fever. PHYSICAL EXAMINATION: Alert and oriented x3. The pulse is 102, blood pressure 100/63, respiration 20, temperature 98.2, pulse ox 91% on room air. HEENT: Conjunctivae normal. NECK: No jugular venous distention. CARDIOVASCULAR: S1, S2 muffled. RESPIRATION: Breath sounds diminished at the bases. A few scattered rhonchi. ABDOMEN: Soft. NERVOUS SYSTEM: No focal deficit. LABS: WBC 11.3, hemoglobin 11. Other labs are noted. ASSESSMENT: 1. Status post panniculectomy. 2. Tachycardia. 3. Dehydration. 4. Asthma. 5. Gastroesophageal reflux disease. 6. Degenerative joint disease. 7. Rheumatoid arthritis. 8. History of kidney stones. 9. History of cardiac catheterization. 10.History of bariatric surgery. 11.History of bladder surgery. 12.History of degenerative joint disease. 13.History of bladder neck suspension. 14.Anxiety, bipolar, depression, panic disorder, posttraumatic stress disorder. 15.History of agoraphobia. 16.History of borderline personality. 17.Remote history of nicotine dependence. 18.FULL CODE. RECOMMENDATIONS AND DISCUSSION: I recommend to continue current medications, continue with symptomatic treatment. Continue the IV fluids. Closely follow with Pain Management and Dr. Yusuf. Continue the rest of the medications. Further recommendations to follow. MMODL / IJN: [id number] /
[2021-07-08 20:05] VITALS: RESP 18
[2021-07-08] MEDS: ATORVASTATIN 10 MG TAB PO SCH (20:29)
[2021-07-08] MEDS: ALPRAZolam 1 MG TAB PO SCH (20:29)
[2021-07-09] MEDS: SODIUM CHLORIDE 0.9% 1,000 ML IV SCH ×3 (00:48→09:57)
[2021-07-09] MEDS: HYDROcodone/APAP 5-325MG 1 EACH TAB PO PRN ×2 (04:59→14:31)
[2021-07-09] MEDS: VENLAFAXINE HCL ER 150 MG CAP PO SCH (09:55)
[2021-07-09] MEDS: hydrOXYzine HCL 25 MG TAB PO SCH (09:55)
[2021-07-09] MEDS: ENOXAPARIN 40 MG/0.4 ML SYRINGE SQ SCH (09:56)
[2021-07-09] MEDS: PANTOPRAZOLE 40 MG TABLET PO SCH (09:56)
--- NOTE | 2021-07-09 11:22 | P.PN ---
Progress Note - Text Progress Note Date: 07/09/21 Patient's stay well. She has some mild incisional pain. On exam vital signs are stable. Abdomen soft. Incision sites clean dry tach. Patient was discharged home today. She'll follow-up in one week.
[2021-07-09 12:01] VITALS: BP 114/71; PULSE 87; TEMP 98.6
--- NOTE | 2021-07-09 15:59 | PN ---
PROGRESS NOTE DATE OF SERVICE: 07/09/2021 This 55 -year-old woman who was admitted after panniculectomy is complaining of abdominal pain. No chest pain. No palpitations. No fever. PHYSICAL EXAMINATION: Alert and oriented times three. Pulse is 101, blood pressure 133/60, respirations 18, temperature 98.2, pulse ox 94% on room air. HEENT: Conjunctivae normal. Neck: No JVD. Cardiovascular: S1, S2 muffled. Respiratory: Breath sounds diminished in the bases. A few scattered rhonchi. Abdomen: Soft. Nontender. Nervous system: No focal deficits. LAB STUDIES: WBC 11.7, hemoglobin 11.03. ASSESSMENT: 1. Status post panniculectomy. 2. Tachycardia. 3. Dehydration improved. 4. History of asthma. 5. History of gastroesophageal reflux disease. 6. History of degenerative joint disease. 7. History of rheumatoid arthritis. 8. History of kidney stones. 9. History of cardiac catheterization. 10.History of bariatric surgery. 11.History of bladder surgery. 12.History of degenerative joint disease. 13.History of bladder neck suspension. 14.Anxiety, bipolar depression, panic disorder, posttraumatic stress disorder. 15.History of agoraphobia. 16.History of borderline personality disorder. 17.Remote history of nicotine dependence. 18.FULL CODE. RECOMMENDATIONS AND DISCUSSION: I recommend to continue current medications, and symptomatic treatment, pain medications. Otherwise, resume the home medications. Follow up with primary physician in the outpatient setting. The rest of the recommendations per surgery. Further recommendations to follow. MMODL / IJN: [id number] /
== END 2021-07-09 14:59 | disposition home or self-care (01) ==
LOC: OR 06:52 → 5NMEDONC 11:06 → OR 07-08 12:41 → 5NMEDONC 07-08 12:45
PROVIDERS: ADMIT Surgery; ATTEND Surgery
DX: M79.3 Panniculitis, unspecified (principal); L98.7 Excessive and redundant skin and subcutaneous tissue; E86.0 Dehydration; J45.909 Unspecified asthma, uncomplicated; K21.9 Gastro-esophageal reflux disease without esophagitis; M19.90 Unspecified osteoarthritis, unspecified site; M06.9 Rheumatoid arthritis, unspecified; Z20.822 Contact with and (suspected) exposure to COVID-19; F60.3 Borderline personality disorder; F43.10 Post-traumatic stress disorder, unspecified; F41.0 Panic disorder [episodic paroxysmal anxiety]; F31.9 Bipolar disorder, unspecified; F40.00 Agoraphobia, unspecified; Z79.899 Other long term (current) drug therapy; Z88.5 Allergy status to narcotic agent; Z88.7 Allergy status to serum and vaccine; Z91.048 Other nonmedicinal substance allergy status; Z91.040 Latex allergy status; Z88.1 Allergy status to other antibiotic agents; Z88.8 Allergy status to other drugs, medicaments and biological substances; Z88.0 Allergy status to penicillin; Z88.6 Allergy status to analgesic agent; Z98.84 Bariatric surgery status; Z87.442 Personal history of urinary calculi; Z87.891 Personal history of nicotine dependence; Z90.710 Acquired absence of both cervix and uterus; Z85.41 Personal history of malignant neoplasm of cervix uteri; Z80.8 Family history of malignant neoplasm of other organs or systems; Z80.3 Family history of malignant neoplasm of breast
CPT/HCPCS: 15830; 15847; 94640; 64999; 80048; 85025 ×2; 87635; G0378 ×2; J2250; J1200; J1644; J1100; J2710; J0690; J2405; J2001; J1650 ×2; J3010; J1170 ×3; J2795; J0330; J2704; 96361

== ENCOUNTER → 2021-07-21 | Outpatient (CLI) | payer MEDICARE, OTHER ==
[2021-07-21 15:30] VITALS: BP 111/62; PULSE 94; TEMP 98.2; BMI 23.8
--- NOTE | 2021-07-21 16:02 | P.HPBAR ---
Bariatric H&P - History & Physicial H&P Date: 07/21/21 History & Physicial: Visit/CC: [place] follow up Patient initial contact: Initial weight: 104.78 kg Initial weight in pounds: 231.00 Height: 5 ft 5.25 in Initial BMI: 38.1 Last weight: Current weight: 65.317 kg Current weight in pounds: 144.00 Current BMI: 23.8 [place] body weight (based on NIH guidelines): 57.266 kg Excess body weight loss: 83.0% The patient is a 55 year-old F who presents for Bariatric Assessment. Patient is status post a panniculectomy. She has had minimal output through her IBAN drains. She states her incision is well-healed. Past Medical History Past Medical History: Asthma, Cancer, GERD/Reflux, Osteoarthritis (OA), Rheumatoid Arthritis (RA) Additional Past Medical History / Comment(s): kidney stones, arrhythmia, cervical/uterine cancer several years ago. bells-palsy x8 History of Any Multi-Drug Resistant Organisms: None Reported Past Surgical History: Bariatric Surgery, Bladder Surgery, Ear Surgery, Hysterectomy, Orthopedic Surgery, Tonsillectomy, Tubal Ligation Additional Past Surgical History / Comment(s): bladder neck suspension, mastoid facial decompression, rt ear stapes surgery, rt ankle plate and screws, egd, colonoscopy, sleeve gastrectomy 07-28-19, rectocele/cystocele Past Anesthesia/Blood Transfusion Reactions: Previous Problems w/ Anesthesia, Postoperative Nausea & Vomiting (PONV) Additional Past Anesthesia/Blood Transfusion Reaction / Comm: pt states "came out of twilight anesthesia when doing procedure" Smoking Status: Former smoker - Past Family History Sister(s) Family Medical History: Cancer Additional Family Medical History / Comment(s): breast cancer Father Family Medical History: Cancer Additional Family Medical History / Comment(s): throat cancer Surgical - Exam Vital Signs Temp Pulse BP 98.2 F 94 111/62 07/21/21 15:21 07/21/21 15:21 07/21/21 15:21 - General well developed, well nourished, no distress - Eyes PERRL - ENT normal pinna - Neck no masses - Respiratory normal expansion - Cardiovascular Rhythm: regular - Abdomen Incision is well-healed. Abdomen: soft, non tender Bariatric Assessment & Plan Plan: IBAN drains were removed. Patient follow-up in 2 weeks. Bariatric Checklist Checklist: Plan: Checklist: EGD: 1. Hiatal hernia: 2. H. Pylori: HgbA1c: Vitamin D: Smoking: Current every day smoker Primary care physician referral: Dr. Megan Flores Psychiatry clearance: Cardiology clearance: Sleep study: Diet journal: VTE risk score: VTE risk level: Rehab needs at discharge:
== END ==
LOC: BARWHC3 14:33
PROVIDERS: ATTEND Surgery
DX: Z48.03 Encounter for change or removal of drains (principal); K21.9 Gastro-esophageal reflux disease without esophagitis; M19.90 Unspecified osteoarthritis, unspecified site; M06.9 Rheumatoid arthritis, unspecified; Z98.84 Bariatric surgery status; Z87.891 Personal history of nicotine dependence; Z88.1 Allergy status to other antibiotic agents; Z88.5 Allergy status to narcotic agent; Z88.8 Allergy status to other drugs, medicaments and biological substances; Z88.7 Allergy status to serum and vaccine; Z91.041 Radiographic dye allergy status; Z91.040 Latex allergy status; Z88.0 Allergy status to penicillin; Z88.2 Allergy status to sulfonamides
CPT/HCPCS: 99212

== ENCOUNTER → 2021-12-01 | Outpatient (CLI) | payer MEDICARE, OTHER ==
[2021-12-01 14:56] VITALS: BP 134/83; PULSE 98; RESP 16; TEMP 98.5; BMI 23.1
== END ==
LOC: BARWHC3 14:05
PROVIDERS: ATTEND Surgery
DX: Z09 Encounter for follow-up examination after completed treatment for conditions other than malignant neoplasm (principal); K59.09 Other constipation; Z98.84 Bariatric surgery status; Z87.891 Personal history of nicotine dependence
CPT/HCPCS: 99211

== ENCOUNTER → 2021-12-29 | Outpatient (CLI) | payer MEDICARE, OTHER ==
[2021-12-29 11:52] LABS: African American GFR (CKD) >90 (>60 ml/min/1.73 sqM); Blood Urea Nitrogen 13 mg/dL (7-17); Non-African American GFR(CKD) 82 (>60 ml/min/1.73 sqM)
--- NOTE | 2021-12-29 15:35 | CT ---
EXAMINATION TYPE: CT abdomen pelvis w con DATE OF EXAM: 12/29/2021 COMPARISON: NONE HISTORY: 55 year-old female K57.92, abdominal pain, nausea TECHNIQUE: Contiguous axial scanning of the abdomen and pelvis following administration of 100 ml Iso joel 300 IV contrast. Delayed images through the kidneys and coronal/sagittal reconstructions perform ed. CT DLP: 525.3 mGycm Automated exposure control for dose reduction was used. FINDINGS: Heart normal size without pericardial effusion. Lung bases clear without pleural effusion. Liver mildly enlarged at 19.7 cm. Some focal fat along the anterior falciform ligament. No focal lesi on seen. Portal venous system is patent. No biliary ductal dilatation. Gallbladder surgically absent. Prominent but not enlarged 1.1 cm portacaval lymph node. No mesenteric or retroperitoneal lymphadenop athy otherwise identified. Adrenal glands, kidneys, spleen, and pancreas within normal limits. Post surgical changes of gastrectomy. Oral contrast has progressed to the mid small bowel level. Mild atherosclerotic calcifications infrarenal abdominal aorta and common iliac arteries. No dilated small bowel, free fluid, or free air. There seems to be some retained barium or other high density contrast throughout the colon. The appen malik is not discretely visualized. No secondary findings of acute appendicitis in the right lower quad rant. Bladder partially distended. Uterus surgically absent. Numerous pelvic phleboliths. Both ovaries are visualized. No abnormal fluid collection the pelvis or pelvic lymphadenopathy. Bones: Hypertrophic facet arthropathy throughout the lumbar spine with grade 1 anterolisthesis L4-L5. IMPRESSION: 1. RETAINED BARIUM OR OTHER HIGH DENSITY CONTRAST MATERIAL THROUGHOUT THE COLON. CORRELATE FOR ANY RE CENT BARIUM OR OTHER CONTRAST STUDY. 2. MILD HEPATOMEGALY AT 19.7 CM. 3. STATUS POST SLEEVE GASTRECTOMY. 4. NO ACUTE INFLAMMATORY PROCESS IDENTIFIED IN THE ABDOMEN OR PELVIS TO EXPLAIN THE PATIENT'S SYMPTOM S.
== END | disposition home or self-care (01) ==
LOC: RADCTMAIN 11:08
PROVIDERS: ATTEND Surgery
DX: R16.0 Hepatomegaly, not elsewhere classified (principal); Z98.84 Bariatric surgery status
CPT/HCPCS: 82565; 84520; 74177; 36415; Q9967

== ENCOUNTER → 2021-12-29 | Outpatient (CLI) | payer MEDICARE, OTHER ==
[2021-12-29 13:05] VITALS: BP 108/69; PULSE 95; TEMP 97.7; BMI 22.9
--- NOTE | 2021-12-29 14:41 | P.HPBAR ---
Bariatric H&P - History & Physicial H&P Date: 12/29/21 History & Physicial: Visit/CC: ct f/u Patient initial contact: Initial weight: 104.78 kg Initial weight in pounds: 231.00 Height: 5 ft 5.25 in Initial BMI: 38.1 Last weight: Current weight: 63.049 kg Current weight in pounds: 139.00 Current BMI: 22.9 [place] body weight (based on NIH guidelines): 57.266 kg Excess body weight loss: 87.8% The patient is a 55 year-old F who presents for Bariatric Assessment. She presents today for bariatric follow-up. She has complaints of some abdominal pain. This is worsened with her constipation. She feels bloated and has difficulty going the bathroom. Past Medical History Past Medical History: Asthma, Cancer, GERD/Reflux, Osteoarthritis (OA), Rheumatoid Arthritis (RA) Additional Past Medical History / Comment(s): kidney stones, arrhythmia, cervical/uterine cancer several years ago. bells-palsy x8 History of Any Multi-Drug Resistant Organisms: None Reported Past Surgical History: Bariatric Surgery, Bladder Surgery, Ear Surgery, Hysterectomy, Orthopedic Surgery, Tonsillectomy, Tubal Ligation Additional Past Surgical History / Comment(s): bladder neck suspension, mastoid facial decompression, rt ear stapes surgery, rt ankle plate and screws, egd, colonoscopy, sleeve gastrectomy 07-28-19, rectocele/cystocele Past Anesthesia/Blood Transfusion Reactions: Previous Problems w/ Anesthesia, Postoperative Nausea & Vomiting (PONV) Additional Past Anesthesia/Blood Transfusion Reaction / Comm: pt states "came out of twilight anesthesia when doing procedure" Past Psychological History: Anxiety, Bipolar, Depression, Panic Disorder, PTSD Additional Psychological History / Comment(s): agoraphobia, borderline personality disorder or chronic depression Smoking Status: Former smoker Past Alcohol Use History: Rare Additional Past Alcohol Use History / Comment(s): smoker 30+ years on and off smoked 1 ppd Past Drug Use History: None Reported - Past Family History Sister(s) Family Medical History: Cancer Additional Family Medical History / Comment(s): breast cancer Father Family Medical History: Cancer Additional Family Medical History / Comment(s): throat cancer Surgical - Exam Vital Signs Temp Pulse BP 97.7 F 95 108/69 12/29/21 12:59 12/29/21 12:59 12/29/21 12:59 - General well developed, well nourished, no distress - Eyes PERRL - ENT normal pinna - Neck no masses - Respiratory normal expansion - Cardiovascular Rhythm: regular - Abdomen Abdomen: soft, non tender Bariatric Assessment & Plan Plan: I'll discussion with the patient regarding constipation. Erector which increased water and fiber intake. The patient will follow-up in one month. Patient has had a CAT scan of the abdomen performed. Results of this are not available yet. Bariatric Checklist Checklist: Plan: Checklist: EGD: 1. Hiatal hernia: 2. H. Pylori: HgbA1c: Vitamin D: Smoking: Current every day smoker Primary care physician referral: Dr. Megan Flores Psychiatry clearance: Cardiology clearance: Sleep study: Diet journal: VTE risk score: VTE risk level: Rehab needs at discharge:
== END ==
LOC: BARWHC3 12:56
PROVIDERS: ATTEND Surgery
DX: Z09 Encounter for follow-up examination after completed treatment for conditions other than malignant neoplasm (principal); K59.00 Constipation, unspecified; J45.909 Unspecified asthma, uncomplicated; M19.90 Unspecified osteoarthritis, unspecified site; M10.9 Gout, unspecified; Z98.84 Bariatric surgery status; F31.9 Bipolar disorder, unspecified; F43.10 Post-traumatic stress disorder, unspecified; F41.0 Panic disorder [episodic paroxysmal anxiety]; Z88.1 Allergy status to other antibiotic agents; Z88.5 Allergy status to narcotic agent; Z88.7 Allergy status to serum and vaccine; Z88.2 Allergy status to sulfonamides; Z88.8 Allergy status to other drugs, medicaments and biological substances; Z91.041 Radiographic dye allergy status; Z91.040 Latex allergy status; F17.200 Nicotine dependence, unspecified, uncomplicated; Z68.22 Body mass index [BMI] 22.0-22.9, adult
CPT/HCPCS: 99211

== ENCOUNTER → 2022-01-26 | Outpatient (CLI) | payer MEDICARE, OTHER ==
--- NOTE | 2022-01-26 14:15 | P.HPBAR ---
Bariatric H&P - History & Physicial H&P Date: 01/26/22 History & Physicial: Visit/CC: CT scan f/u Patient initial contact: Initial weight: 104.78 kg Initial weight in pounds: 231.00 Height: 5 ft 5.25 in Initial BMI: 38.1 Last weight: Current weight: 64.41 kg Current weight in pounds: 142.00 Current BMI: 23.4 [place] body weight (based on NIH guidelines): 57.266 kg Excess body weight loss: 84.9% The patient is a 56 year-old F who presents for Bariatric Assessment. Patient presents today for bariatric follow. She currently weighs 142 pounds. Her last weight was 139 pounds. She is complaints of some minimal GERD and mainly constipation. Her recent CAT scan shows some evidence of constipation. She feels bloated intermittently. Past Medical History Past Medical History: Asthma, Cancer, GERD/Reflux, Osteoarthritis (OA), Rheumatoid Arthritis (RA) Additional Past Medical History / Comment(s): kidney stones, arrhythmia, cervical/uterine cancer several years ago. bells-palsy x8 History of Any Multi-Drug Resistant Organisms: None Reported Past Surgical History: Bariatric Surgery, Bladder Surgery, Ear Surgery, Hysterectomy, Orthopedic Surgery, Tonsillectomy, Tubal Ligation Additional Past Surgical History / Comment(s): bladder neck suspension, mastoid facial decompression, rt ear stapes surgery, rt ankle plate and screws, egd, colonoscopy, sleeve gastrectomy 07-28-19, rectocele/cystocele Past Anesthesia/Blood Transfusion Reactions: Previous Problems w/ Anesthesia, Postoperative Nausea & Vomiting (PONV) Additional Past Anesthesia/Blood Transfusion Reaction / Comm: pt states "came out of twilight anesthesia when doing procedure" Past Psychological History: Anxiety, Bipolar, Depression, Panic Disorder, PTSD Additional Psychological History / Comment(s): agoraphobia, borderline personality disorder or chronic depression Smoking Status: Former smoker Past Alcohol Use History: Rare Additional Past Alcohol Use History / Comment(s): smoker 30+ years on and off smoked 1 ppd Past Drug Use History: None Reported - Past Family History Sister(s) Family Medical History: Cancer Additional Family Medical History / Comment(s): breast cancer Father Family Medical History: Cancer Additional Family Medical History / Comment(s): throat cancer Surgical - Exam Vital Signs Temp Pulse BP 98.6 F 104 H 108/60 01/26/22 13:48 01/26/22 13:48 01/26/22 13:48 - General well developed, well nourished, no distress - Eyes PERRL - ENT normal pinna - Neck no masses - Respiratory normal expansion - Abdomen Abdomen: soft, non tender Bariatric Assessment & Plan Plan: Patient's GERD is minimal and will be observed. Regards for constipation of epigastric to be referred to GI by her PCP. Bariatric Checklist Checklist: Plan: Checklist: EGD: 1. Hiatal hernia: 2. H. Pylori: HgbA1c: Vitamin D: Smoking: Current every day smoker Primary care physician referral: Dr. Megan Flores Psychiatry clearance: Cardiology clearance: Sleep study: Diet journal: VTE risk score: VTE risk level: Rehab needs at discharge:
[2022-01-26 15:48] VITALS: BP 108/60; PULSE 104; TEMP 98.6; BMI 23.4
== END ==
LOC: BARWHC3 13:24
PROVIDERS: ATTEND Surgery
DX: Z09 Encounter for follow-up examination after completed treatment for conditions other than malignant neoplasm (principal); K21.9 Gastro-esophageal reflux disease without esophagitis; J45.909 Unspecified asthma, uncomplicated; M19.90 Unspecified osteoarthritis, unspecified site; M10.9 Gout, unspecified; Z98.84 Bariatric surgery status; F31.9 Bipolar disorder, unspecified; F41.1 Generalized anxiety disorder; F43.10 Post-traumatic stress disorder, unspecified; Z87.891 Personal history of nicotine dependence
CPT/HCPCS: 99211

== ENCOUNTER → 2022-08-24 | Outpatient (CLI) | payer MEDICARE, OTHER ==
[2022-08-24 15:04] VITALS: BP 133/77; PULSE 75; TEMP 98.1; BMI 26.7
--- NOTE | 2022-09-14 15:21 | P.HPBAR ---
Bariatric H&P - History & Physicial H&P Date: 08/24/22 History & Physicial: Visit/CC: N/V, abd pain, hx. sleeve Patient initial contact: Initial weight: 104.78 kg Initial weight in pounds: 231.00 Height: 5 ft 5.25 in Initial BMI: 38.1 Last weight: Current weight: 73.482 kg Current weight in pounds: 162.00 Current BMI: 26.7 [place] body weight (based on NIH guidelines): 57.266 kg Excess body weight loss: 65.8% The patient is a 56 year-old F who presents for Bariatric Assessment. Patient presents today for Mike fall. Patient's complaints of constipation and GERD symptoms. Past Medical History Past Medical History: Asthma, Cancer, GERD/Reflux, Osteoarthritis (OA), Rheumatoid Arthritis (RA) Additional Past Medical History / Comment(s): kidney stones, arrhythmia, cervical/uterine cancer several years ago. bells-palsy x8 History of Any Multi-Drug Resistant Organisms: None Reported Past Surgical History: Bariatric Surgery, Bladder Surgery, Ear Surgery, Hys terectomy, Orthopedic Surgery, Tonsillectomy, Tubal Ligation Additional Past Surgical History / Comment(s): bladder neck suspension, mastoid facial decompression, rt ear stapes surgery, rt ankle plate and screws, egd, colonoscopy, sleeve gastrectomy 07-28-19, rectocele/cystocele Past Anesthesia/Blood Transfusion Reactions: Previous Problems w/ Anesthesia, Postoperative Nausea & Vomiting (PONV) Additional Past Anesthesia/Blood Transfusion Reaction / Comm: pt states "came out of twilight anesthesia when doing procedure" Past Psychological History: Anxiety, Bipolar, Depression, Panic Disorder, PTSD Additional Psychological History / Comment(s): agoraphobia, borderline p ersonality disorder or chronic depression Smoking Status: Former smoker Past Alcohol Use History: Rare Additional Past Alcohol Use History / Comment(s): smoker 30+ years on and off smoked 1 ppd Past Drug Use History: None Reported - Past Family History Sister(s) Family Medical History: Cancer Additional Family Medical History / Comment(s): breast cancer Father Family Medical History: Cancer Additional Family Medical History / Comment(s): throat cancer Surgical - Exam Vital Signs Temp Pulse BP 98.1 F 75 133/77 08/24/22 15:02 08/24/22 15:02 08/24/22 15:02 - General well developed, well nourished, no distress - Eyes PERRL - ENT normal pinna - Neck no masses - Respiratory normal expansion - Cardiovascular Rhythm: regular - Abdomen Abdomen: soft, non tender Bariatric Assessment & Plan Plan: GERD, constipation. Patient will have an esophagram upper GI performed. She may require an EGD. Patient will increase her water and fiber intake to see if it helps her constipation. Bariatric Checklist Checklist: Plan: Checklist: EGD: 1. Hiatal hernia: 2. H. Pylori: HgbA1c: Vitamin D: Smoking: Current every day smoker Primary care physician referral: Dr. Megan Flores Psychiatry clearance: Cardiology clearance: Sleep study: Diet journal: VTE risk score: VTE risk level: Rehab needs at discharge:
== END | disposition home or self-care (01) ==
LOC: BARWHC3 14:37
PROVIDERS: ATTEND Surgery
DX: E66.01 Morbid (severe) obesity due to excess calories (principal); K21.9 Gastro-esophageal reflux disease without esophagitis; K59.00 Constipation, unspecified; J45.909 Unspecified asthma, uncomplicated; M06.9 Rheumatoid arthritis, unspecified; M19.90 Unspecified osteoarthritis, unspecified site; Z98.84 Bariatric surgery status; Z90.49 Acquired absence of other specified parts of digestive tract; Z68.26 Body mass index [BMI] 26.0-26.9, adult; Z87.891 Personal history of nicotine dependence; Z88.1 Allergy status to other antibiotic agents; Z88.0 Allergy status to penicillin; Z91.040 Latex allergy status; Z88.8 Allergy status to other drugs, medicaments and biological substances; Z88.2 Allergy status to sulfonamides; Z88.4 Allergy status to anesthetic agent
CPT/HCPCS: 99211